=== PATIENT | female | born 1935 | race Caucasian/White ===

== ENCOUNTER 2018-05-07 08:51 | Emergency (ER) | payer OTHER ==
[~2018-05-07] VITALS: Ht 167.6 cm; Wt 73.9 kg
[~2018-05-07 08:51] MED LIST: ALEN10 PO; ALEN70 PO; AMLO5 PO; AMOCLA875 PO; ASPI325 PO; ASPI81CH PO; ASPI81EC PO; ATEN25; ATEN50 PO; Antivert25 MG PO; CALCA500CH PO; CARV25 PO; CEPH500 PO; CHOL10002 PO; CLON.5; CLOP75; CLOP75 PO; CRUTCH USE; ERGO400 PO; EXFORGE; EZET10; EZET10 PO; GABA300 PO; HYDACE5 PO; HYDMOR2 PO; ISOMON60ER; ISOMON60ER PO; Isosorbide Mono30 MG; LOSARTAN POTAS100 MG PO; MEGA RED; MEGARED OMEGA-1 EAC1 PO; MULVITA; NIAC500ER; NIAC500ER PO; NITR.4SL; Norco 5-325 Ta1 EACH PO; OMEP20ER; OMEP20ER PO; OXYACE5T PO; Pantoprazole So40 MG PO; Percocet 5-3251 EACH PO; SERT50 PO; VALS80 PO; VENL150ER PO; VENL37.5; VENL37.5 PO; VENL75 PO; VENL75ER PO; [UNRECOGNIZED DRUG - OTHER]
[2018-05-07 09:41] LABS: BASOPHILS ABSOLUTE AUTO 0.03 K/mm3 (0.00-0.23); BASOPHILS PERCENT AUTO 0 % (0-2); EOSINOPHILS ABSOLUTE AUTO 0.23 K/mm3 (0.00-0.68); EOSINOPHILS PERCENT AUTO 3 % (0-6); Hematocrit 32.6 % (33.0-51.0); Hemoglobin 10.6 g/dL (11.5-16.0); IMMATURE GRAN ABSOLUTE AUTO 0.03 K/mm3 (0.00-0.10); IMMATURE GRAN PERCENT AUTO 0 % (0-1); LYMPHOCYTES ABSOLUTE AUTO 2.73 K/mm3 (0.84-5.20); LYMPHOCYTES PERCENT AUTO 32 % (21-46); MONOCYTES ABSOLUTE AUTO 0.71 K/mm3 (0.16-1.47); MONOCYTES PERCENT AUTO 8 % (4-13); Mean Corpuscular HGB 31.6 pg (26.0-34.0); Mean Corpuscular HGB Conc 32.5 g/dL (31.5-36.5); Mean Corpuscular Volume 97 fL (80-100); Mean Platelet Volume 9.5 fL (9.1-12.4); NEUTROPHILS ABSOLUTE AUTO 4.95 K/mm3 (1.96-9.15); NEUTROPHILS PERCENT AUTO 57 % (41-73); Platelet Count 314 K/mm3 (150-400); RDW Coefficient Variation 12.7 % (11.7-14.2); RDW Standard Deviation 45.1 fL (35.1-46.3); Red Blood Cell Count 3.35 M/mm3 (3.80-5.20); White Blood Cell Count 8.68 K/mm3 (4.00-11.30)
[2018-05-07] MEDS ORDERED: GABA300 PO (10:06)
[2018-05-07] MEDS ORDERED: PANT40 PO (10:06)
[2018-05-07 10:08] LABS: Alanine Aminotransfer (ALT/SGP 19 U/L (12-78); Albumin, Blood 3.4 g/dL (3.4-5.0); Albumin/Globulin Ratio 0.7 (0.8-1.8); Alk Phos 79 U/L (50-136); Anion Gap 8 mmol/L (6-16); Aspartate Aminotrans (AST/SGOT 17 U/L (12-37); Bilirubin, Total 0.5 mg/dL (0.1-1.0); Blood Urea Nitrogen 16 mg/dL (8-24); Bun/Creatinine Ratio 16.1 (12.0-20.0); CO2, Blood 26 mmol/L (21-32); Calcium, Blood 10.1 mg/dL (8.5-10.1); Chloride, Blood 106 mmol/L (98-108); Globulin, Blood 4.7 g/dL (2.2-4.0); Glomerular Filtration Rate 57 (60-); Glucose, Blood 97 mg/dL (70-99); Potassium, Blood 4.1 mmol/L (3.5-5.5); Sodium, Blood 140 mmol/L (136-145); Total Protein, Blood 8.1 g/dL (6.4-8.2)
[2018-05-07 10:09] LABS: Troponin I <0.015 ng/mL (0.000-0.040)
== END 2018-05-07 11:30 | disposition home or self-care (01) ==
LOC: ER 08:51
PROVIDERS: Internal Medicine
DX: R68.84 Jaw pain (principal); I10 Essential (primary) hypertension; E78.5 Hyperlipidemia, unspecified; Z88.1 Allergy status to other antibiotic agents; Z88.8 Allergy status to other drugs, medicaments and biological substances; Z79.82 Long term (current) use of aspirin; Z79.01 Long term (current) use of anticoagulants; Z87.891 Personal history of nicotine dependence
CPT/HCPCS: 36415; 80053; 84484; 85025; 93005; 93010; 99283-25

== ENCOUNTER 2018-10-13 23:35 | Emergency (ER) | payer MEDICARE, OTHER ==
[~2018-10-13] VITALS: Ht 170.2 cm; Wt 73.9 kg
[~2018-10-13 23:35] MED LIST changes: +FOLGARD TABLET1 EACH PO; -Isosorbide Mono30 MG; +Isosorbide Mono30 MG PO; +PANT40 PO; +VENL150ER
[2018-10-14] MEDS ORDERED: METO25ER PO (00:52)
[2018-10-14] MEDS ORDERED: ALPR.25 (00:54)
[2018-10-14] MEDS ORDERED: NITR.4SL SL (00:58)
[2018-10-14] MEDS ORDERED: Stool Softener100 MG PO (00:59)
[2018-10-14] MEDS ORDERED: PRIM50 PO (01:00)
[2018-10-14] MEDS ORDERED: MIRALAX17 GM PO (01:00)
== END 2018-10-14 02:00 | disposition home or self-care (01) ==
LOC: ER 23:35
DX: S00.03XA Contusion of scalp, initial encounter (principal); I10 Essential (primary) hypertension; M81.0 Age-related osteoporosis without current pathological fracture; E78.5 Hyperlipidemia, unspecified; Z95.1 Presence of aortocoronary bypass graft; Z88.1 Allergy status to other antibiotic agents; Z88.8 Allergy status to other drugs, medicaments and biological substances; Z79.82 Long term (current) use of aspirin; Z79.899 Other long term (current) drug therapy; Z87.891 Personal history of nicotine dependence; W19.XXXA Unspecified fall, initial encounter
CPT/HCPCS: 70450; 72125; 72128; 99283-25

== ENCOUNTER 2019-01-09 15:38 | Inpatient (IN) | payer MEDICARE, SELFPAY ==
[~2019-01-09] VITALS: Ht 165.1 cm; Wt 72.6 kg
[~2019-01-09 15:38] MED LIST changes: +ALPR.25 PO; +METO25ER PO; +MIRALAX17 GM PO; +NITR.4SL SL; +Primidone50 MG PO; +Stool Softener100 MG PO
[2019-01-09 16:22] LABS: BASOPHILS ABSOLUTE AUTO 0.01 K/mm3 (0.00-0.23); BASOPHILS PERCENT AUTO 0 % (0-2); EOSINOPHILS ABSOLUTE AUTO 0.18 K/mm3 (0.00-0.68); EOSINOPHILS PERCENT AUTO 2 % (0-6); Hematocrit 33.5 % (33.0-51.0); Hemoglobin 10.6 g/dL (11.5-16.0); IMMATURE GRAN ABSOLUTE AUTO 0.05 K/mm3 (0.00-0.10); IMMATURE GRAN PERCENT AUTO 1 % (0-1); LYMPHOCYTES ABSOLUTE AUTO 2.17 K/mm3 (0.84-5.20); LYMPHOCYTES PERCENT AUTO 23 % (21-46); MONOCYTES ABSOLUTE AUTO 0.74 K/mm3 (0.16-1.47); MONOCYTES PERCENT AUTO 8 % (4-13); Mean Corpuscular HGB 30.8 pg (26.0-34.0); Mean Corpuscular HGB Conc 31.6 g/dL (31.5-36.5); Mean Corpuscular Volume 97 fL (80-100); Mean Platelet Volume 9.6 fL (9.1-12.4); NEUTROPHILS ABSOLUTE AUTO 6.48 K/mm3 (1.96-9.15); NEUTROPHILS PERCENT AUTO 67 % (41-73); Platelet Count 279 K/mm3 (150-400); RDW Coefficient Variation 13.9 % (11.7-14.2); RDW Standard Deviation 49.7 fL (35.1-46.3); Red Blood Cell Count 3.44 M/mm3 (3.80-5.20); White Blood Cell Count 9.63 K/mm3 (4.00-11.30)
[2019-01-09] MEDS ORDERED: VENL150ER PO (16:27)
[2019-01-09 16:33] LABS: Albumin, Blood 3.1 g/dL (3.4-5.0); Albumin/Globulin Ratio 0.7 (0.8-1.8); Bilirubin, Total 0.2 mg/dL (0.1-1.0); Bun/Creatinine Ratio 13.7 (12.0-20.0); Calcium, Blood 10.6 mg/dL (8.5-10.1); Creatinine, Blood 1.02 mg/dL (0.40-1.00); Globulin, Blood 4.3 g/dL (2.2-4.0); Potassium, Blood 3.7 mmol/L (3.5-5.5); Total Protein, Blood 7.4 g/dL (6.4-8.2)
--- NOTE | 2019-01-09 19:41 | NUR ---
REPORT FROM [facility] IN ED
[2019-01-10 04:16] LABS: BASOPHILS ABSOLUTE AUTO 0.01 K/mm3 (0.00-0.23); BASOPHILS PERCENT AUTO 0 % (0-2); EOSINOPHILS ABSOLUTE AUTO 0.21 K/mm3 (0.00-0.68); EOSINOPHILS PERCENT AUTO 2 % (0-6); Hematocrit 33.2 % (33.0-51.0); Hemoglobin 10.6 g/dL (11.5-16.0); IMMATURE GRAN ABSOLUTE AUTO 0.05 K/mm3 (0.00-0.10); IMMATURE GRAN PERCENT AUTO 0 % (0-1); LYMPHOCYTES ABSOLUTE AUTO 1.96 K/mm3 (0.84-5.20); LYMPHOCYTES PERCENT AUTO 17 % (21-46); MONOCYTES ABSOLUTE AUTO 0.65 K/mm3 (0.16-1.47); MONOCYTES PERCENT AUTO 6 % (4-13); Mean Corpuscular HGB 30.3 pg (26.0-34.0); Mean Corpuscular HGB Conc 31.9 g/dL (31.5-36.5); Mean Corpuscular Volume 95 fL (80-100); Mean Platelet Volume 9.7 fL (9.1-12.4); NEUTROPHILS ABSOLUTE AUTO 8.92 K/mm3 (1.96-9.15); NEUTROPHILS PERCENT AUTO 76 % (41-73); Platelet Count 247 K/mm3 (150-400); RDW Coefficient Variation 14.1 % (11.7-14.2); RDW Standard Deviation 49.3 fL (35.1-46.3)
[2019-01-10 04:45] LABS: Anion Gap 8 mmol/L (6-16); Blood Urea Nitrogen 14 mg/dL (8-24); Bun/Creatinine Ratio 17.3 (12.0-20.0); CO2, Blood 23 mmol/L (21-32); Calcium, Blood 9.6 mg/dL (8.5-10.1); Chloride, Blood 104 mmol/L (98-108); Creatinine, Blood 0.81 mg/dL (0.40-1.00); Glomerular Filtration Rate >60 (60-); Glucose, Blood 111 mg/dL (70-99); Potassium, Blood 3.8 mmol/L (3.5-5.5); Sodium, Blood 135 mmol/L (136-145)
--- NOTE | 2019-01-10 07:14 | NUR ---
SHIFT SUMMARY PT ADMITTED W/ LEFT HIP FX AFTER GLF. BLOOD CONSENT SIGNED, 18G PLACED, SURGICAL PACKET STARTED. PT HAS BEEN NPO SINCE MIDNIGHT BUT SHE MAY REQUIRE A DELAY IN SURGERY D/T TAKING PLAVIX AT HOME. PT REMAINED ON OXIMIZER AT 5L OVERNIGHT FOR NARCOTIC PAIN MEDS. TELE WAS NSR AT 84 AT TIME OF ASSESSMENT. LANDRY PATENT AND DRAINING. WILL CTM UNTIL PASS TO NEXT SHIFT.
--- NOTE | 2019-01-10 08:20 | NUR ---
SURGICAL CLEARANCE SPOKE WITH DR. DUTTON REGARDING PT HAVING SURGERY TODAY. SHE WAS NOTIFIED THAT PT IS ON 5-6L OXIMIZER AT THIS TIME. SHE REPORTED SHE WOULD SEE PT PRIOR TO GIVING MEDICAL CLEARANCE FOR SURGERY. DR. LUNA NOTIFIED AND GIVEN DR. DUTTON'S CONTACT NUMBER. WILL CONTIUE TO MONITOR PT. CHANGE IN IV PAIN MEDICATION REQUESTED. CONTINUOUS PULSE OXIMETER IN PLACE.
--- NOTE | 2019-01-10 10:33 | NUR ---
SHIFT ASSESSMENT SHIFT ASSESSMENT DOCUMENTATION BY MARY STUDENT NURSE WAS REVIEWED, THIS RN AGREES WITH DOCUMENTATION. PT IS ORIENTED BUT DROWSY. LLE IS SHORTENED AND EXTERNALLY ROTATED, PULSES ARE EQUAL BILATERALLY. UNABLE TO ASSESS PT'S POSTERIOR R/T PAIN. PT WAS PREVIOUSLY GIVEN DILAUDID AND REMAINS QUITE DROWSY, AT THIS TIME UNABLE TO GIVE ADDIONAL NARCOTIC PAIN MEDICATION R/T DROWSINESS AND CONCERN FOR SAFETY IF MEDICATION WAS GIVEN. TYLENOL GIVEN FOR PAIN. WILL CONTINUE TO MONITOR.
--- NOTE | 2019-01-10 14:31 | NUR ---
MEDICATION LIST PT APPEARS TO BE SOMEWHAT CONFUSED ABOUT THE MEDICATIONS SHE TAKES AT HOME. MEDICATION LIST WAS VERIFIED A SECOND TIME WITH THE PATIENT AND HER SON. APPEARS MEDICATIONS ORDERED ARE CORRECT IN THE EMAR AT THIS TIME.
--- NOTE | 2019-01-10 15:11 | NUR ---
SKIN INTEGRITY/REPOSITIONING PT WAS EDUCATED THAT SHE COULD DEVELOP A PRESSURE INJURY IF SHE DID NOT ALLOW STAFF TO ASSIST WITH REPOSITIONING. PT WAS RESISTANT TO REPOSITIONING BUT ULTIMATELY ALLOWED STAFF TO ASSIST HER SLIGHTLY ONTO HER R SIDE. SACRUM IS REDDENED, SKIN BLANCHES, NO OPEN AREAS OF SKIN.
--- NOTE | 2019-01-10 17:02 | NUR ---
SHIFT SUMMARY PT WAS ADMITTED FOR A L HIP FX FROM [facility], SURGERY HAS BEEN DELAYED UNTIL SHE NEEDS LESS O2, CURRENTLY ON 4.5L VIA NASAL CANNULA, PT STATES SHE DOES NOT REQUIRE O2 AT BASELINE. 18G IV IN R WRIST. MAY REQUIRE SNF OR OTHER ACCOMMODATIONS FOR RECOVERY.
--- NOTE | 2019-01-10 18:43 | NUR ---
SHIFT SUMMARY PAIN HAS BEEN MANAGED WITH TYLENOL THIS SHIFT. PT DENIES PAIN EXCEPT WITH REPOSITIONING. PT IS TOLERATING REPOSITIONG THIS WELL. FAMILY HAS BEEN IN TO VISIT DURING THE DAY. OXYGEN HAS BEEN SLOWLY WEANED PT IS NOW ON 3L O2 VIA NC. VSS. WILL MONITOR UNTIL REPORT TO ONCOMING RN.
--- NOTE | 2019-01-11 06:45 | NUR ---
SHIFT SUMMARY PT IS AN ADD-ON FOR SURGERY TODAY FOR LEFT HIP FX. SHE IS GENERALLY A&O BUT FORGETFUL. STAYED THE NIGHT LAST NIGHT. PT DID NOT REQUIRE PAIN MEDS, SLEPT HARD. SHE HAD TO BE TURNED UP TO 3L VIA NC BECAUSE SHE COULDN'T MAINTAIN 90% ON 2L. PT HAS BEEN NPO SINCE MIDNIGHT, LOVENOX HELD, 18G IN PLACE. LANDRY PATENT AND DRAINING. TELE WAS SINUS WITH [facility] OVERNIGHT. WILL CTM UNTIL PASS TO NEXT SHIFT.
--- NOTE | 2019-01-11 07:32 | NUR ---
DR AMADOR HERE TO SEE PT.
--- NOTE | 2019-01-11 08:26 | NUR ---
DR SETH HERE RECENTLY TO SEE PT. DISCUSSED MEDICATIONS. REPORTS TO HOLD MEDICATIONS AT THIS TIME.
[2019-01-11 08:37] LABS: Source, Urine Catheter
[2019-01-11 08:39] LABS: Bilirubin, Urine Neg (Neg); Blood, Urine 5+ (Neg); Glucose Qualitative, Urine Neg (Neg); Ketones, Urine Neg (Neg); Leukocyte Esterase, Urine 1+ (Neg); Nitrite, Urine Neg (Neg); Protein, Urine 1+ (Neg); Urobilinogen, Urine NORM (Normal)
[2019-01-11 08:52] LABS: BASOPHILS ABSOLUTE AUTO 0.02 K/mm3 (0.00-0.23); BASOPHILS PERCENT AUTO 0 % (0-2); EOSINOPHILS ABSOLUTE AUTO 0.19 K/mm3 (0.00-0.68); EOSINOPHILS PERCENT AUTO 2 % (0-6); Hematocrit 37.6 % (33.0-51.0); Hemoglobin 12.2 g/dL (11.5-16.0); IMMATURE GRAN ABSOLUTE AUTO 0.07 K/mm3 (0.00-0.10); IMMATURE GRAN PERCENT AUTO 1 % (0-1); LYMPHOCYTES ABSOLUTE AUTO 1.65 K/mm3 (0.84-5.20); LYMPHOCYTES PERCENT AUTO 14 % (21-46); MONOCYTES ABSOLUTE AUTO 0.88 K/mm3 (0.16-1.47); MONOCYTES PERCENT AUTO 7 % (4-13); Mean Corpuscular HGB 30.3 pg (26.0-34.0); Mean Corpuscular HGB Conc 32.4 g/dL (31.5-36.5); Mean Corpuscular Volume 94 fL (80-100); Mean Platelet Volume 9.6 fL (9.1-12.4); NEUTROPHILS ABSOLUTE AUTO 9.13 K/mm3 (1.96-9.15); NEUTROPHILS PERCENT AUTO 76 % (41-73); Platelet Count 277 K/mm3 (150-400); RDW Coefficient Variation 14.1 % (11.7-14.2); RDW Standard Deviation 48.4 fL (35.1-46.3); Red Blood Cell Count 4.02 M/mm3 (3.80-5.20); White Blood Cell Count 11.94 K/mm3 (4.00-11.30)
[2019-01-11 09:21] LABS: Alanine Aminotransfer (ALT/SGP 15 U/L (12-78); Albumin, Blood 3.1 g/dL (3.4-5.0); Albumin/Globulin Ratio 0.7 (0.8-1.8); Alk Phos 76 U/L (50-136); Anion Gap 7 mmol/L (6-16); Aspartate Aminotrans (AST/SGOT 16 U/L (12-37); Bilirubin, Total 0.6 mg/dL (0.1-1.0); Blood Urea Nitrogen 11 mg/dL (8-24); Bun/Creatinine Ratio 14.7 (12.0-20.0); CO2, Blood 24 mmol/L (21-32); Calcium, Blood 10.2 mg/dL (8.5-10.1); Chloride, Blood 103 mmol/L (98-108); Creatinine, Blood 0.75 mg/dL (0.40-1.00); Globulin, Blood 4.6 g/dL (2.2-4.0); Glomerular Filtration Rate >60 (60-); Glucose, Blood 106 mg/dL (70-99); Potassium, Blood 3.5 mmol/L (3.5-5.5); Sodium, Blood 134 mmol/L (136-145); Total Protein, Blood 7.7 g/dL (6.4-8.2)
[2019-01-11 09:32] LABS: Appearance, Urine Hazy (Clear); Color, Urine Yellow (P-Yellow)
[2019-01-11 09:33] LABS: Bacteria Few /hpf; Mucus Light ({null, 0-Heavy}); Red Blood Cells, Urine 25-50 /hpf (0-2); Squamous Epithelial Cells Few /hpf (Few)
--- NOTE | 2019-01-11 09:55 | NUR ---
PO MEDS GIVEN WITH SIP OF WATER. FAMILY NOW HERE WITH PT.
--- NOTE | 2019-01-11 10:38 | NUR ---
DR SETH HERE. FAMILY HERE.
--- NOTE | 2019-01-11 14:58 | NUR ---
PT TO IMAGING. PT WAS MULT ASSIST TO TANESHA. PT TOLERATED WELL.
--- NOTE | 2019-01-11 19:26 | NUR ---
SHIFT SUMMARY PT HAS BEEN BEDREST TODAY. REPOSITIONED MULTIPLE TIMES. DR IN TO SEE PT THIS MORNING. DISCUSSED MEDS WITH DR. PT HAS BEEN EATING AND DRINKING TODAY PER ORDERS. PT IS PASSING GAS. FAMILY HAS BEEN IN WITH PATIENT TODAY. LNADRY IN PLACE, SECURED, OFF FLOOR. BED ALARM ON. ORTHO REPORTS PLAN FOR SURGERY ON
--- NOTE | 2019-01-12 07:43 | NUR ---
SHIFT SUMMARY PT A&O X4; PT IN ROOM T/O SHIFT. PAIN IN L HIP/LLE MANAGED PER EMAR. PT REPOSITIONED PT TOLERATED. CONT. OXIMETRY IN PLACE; O2 VIA NC; TELEMETRY IN PLACE, SR WITH OCC PVC'S PER BELT MEASURER. PPPX4; PT DENIES N/T IN EXT, SOB, CP AND NAUSEA. SCD'S TO BLE'S. CALL LIGHT IN REACH; PT DEMONSTRATES USE. SIDE RAILS X3 FOR SAFETY. REPORT GIVEN TO DAY SHIFT RN.
--- NOTE | 2019-01-12 11:50 | NUR ---
DR HERE TO SEE PT RECENTLY. DISCUSSED PT STATUS AND PLANS FOR SURGERY.
--- NOTE | 2019-01-12 12:59 | NUR ---
BEDBATH GIVEN BY FEMALE ZINC SKIMMER AND FEMALE RN. GOWN AND BLANKETS CHANGED AT THIS TIME.
--- NOTE | 2019-01-12 14:40 | NUR ---
Met pt. lying in bed resting , she reports doing much better , encouraged pt. and opffered spirirual support and prayers.
--- NOTE | 2019-01-12 18:21 | NUR ---
SHIFT SUMMARY PT HAS BEEN BEDREST PER ORDERS D/T HIP FX. PT WAS GIVEN BEDBATH TODAY. SEE NOTE. IN TO SEE PT TODAY. DISCUSSED PLANS FOR SURGERY WELL MEDICATION. PT HAS BEEN TOLERATING FOOD AND FLUIDS WELL. LANDRY IN PLACE, SECURED, OFF FLOOR. PT HAS BEEN ON O2 TODAY. FAMILY HAS BEEN IN THE ROOM WITH PT TODAY. PT HAS BEEN REPOSITIONED SEVERAL TIMES.
--- NOTE | 2019-01-13 04:46 | NUR ---
SUMMARY: PT ADMITTED FOR L HIP FX. NO ACUTE CHANGE TONIGHT. VSS, REPOSITIONED FOR COMFORT. PT HAS DENIED PAIN AT HIP THE MAJORITY OF THE NIGHT, MEDICATED X1, OTHERWISE PT HAS SLEPT. TELE GRIS IBARRA PATENT. PT HAS BEEN NPO SINCE 0000. PLAN IS SURGERY TODAY. PT AT BEDSIDE. WILL CONTINUE TO MONITOR AND REPORT TO DAY RN
[2019-01-13 04:53] LABS: BASOPHILS ABSOLUTE AUTO 0.02 K/mm3 (0.00-0.23); BASOPHILS PERCENT AUTO 0 % (0-2); EOSINOPHILS ABSOLUTE AUTO 0.33 K/mm3 (0.00-0.68); EOSINOPHILS PERCENT AUTO 3 % (0-6); Hematocrit 34.1 % (33.0-51.0); Hemoglobin 11.1 g/dL (11.5-16.0); IMMATURE GRAN ABSOLUTE AUTO 0.05 K/mm3 (0.00-0.10); IMMATURE GRAN PERCENT AUTO 0 % (0-1); LYMPHOCYTES ABSOLUTE AUTO 2.39 K/mm3 (0.84-5.20); LYMPHOCYTES PERCENT AUTO 21 % (21-46); MONOCYTES ABSOLUTE AUTO 1.39 K/mm3 (0.16-1.47); MONOCYTES PERCENT AUTO 12 % (4-13); Mean Corpuscular HGB 30.7 pg (26.0-34.0); Mean Corpuscular HGB Conc 32.6 g/dL (31.5-36.5); Mean Corpuscular Volume 95 fL (80-100); Mean Platelet Volume 10.1 fL (9.1-12.4); NEUTROPHILS ABSOLUTE AUTO 7.03 K/mm3 (1.96-9.15); NEUTROPHILS PERCENT AUTO 63 % (41-73); Platelet Count 260 K/mm3 (150-400); RDW Coefficient Variation 13.9 % (11.7-14.2); RDW Standard Deviation 48.1 fL (35.1-46.3); Red Blood Cell Count 3.61 M/mm3 (3.80-5.20); White Blood Cell Count 11.21 K/mm3 (4.00-11.30)
[2019-01-13 05:07] LABS: Albumin, Blood 2.6 g/dL (3.4-5.0); Anion Gap 8 mmol/L (6-16); Blood Urea Nitrogen 23 mg/dL (8-24); Bun/Creatinine Ratio 26.5 (12.0-20.0); CO2, Blood 25 mmol/L (21-32); Calcium, Blood 10.4 mg/dL (8.5-10.1); Chloride, Blood 100 mmol/L (98-108); Creatinine, Blood 0.87 mg/dL (0.40-1.00); Glomerular Filtration Rate >60 (60-); Glucose, Blood 102 mg/dL (70-99); Phosphorus, Blood 3.1 mg/dL (2.5-4.9); Potassium, Blood 3.9 mmol/L (3.5-5.5); Sodium, Blood 133 mmol/L (136-145)
--- NOTE | 2019-01-13 07:44 | NUR ---
pt has her eyes close opens to verbal stimuli pt stated her pain is better plan for or today around 1230 npo spouse at bedside
--- NOTE | 2019-01-13 11:15 | NUR ---
pt visiting with family offered pain meds pt declined
--- NOTE | 2019-01-13 11:42 | NUR ---
pt transported by bed to day surg
--- NOTE | 2019-01-13 11:50 | NUR ---
INTO SDS ADMISSION TO UNIT STARTED. VSS SAT 90-91% ON O2.
--- NOTE | 2019-01-13 13:37 | NUR ---
Pt. is not in the room, she is gone for surgery will try to see her when she is out from surgery.
--- NOTE | 2019-01-13 13:48 | NUR ---
01/13/19 1348 Ezra Chavez RECEIVED TO OR WITH LANDRY IN PLACE
--- NOTE | 2019-01-13 16:05 | NUR ---
pt arrived to room 215 from pacu pt is s/p l hip repair aquacel cdi pt is sleeping does not open her eyes but stirs with physical stimuli and follows simple commands pt has nc in her mouth family at bedside cl on bedside table will offer when pt more alert
--- NOTE | 2019-01-13 18:30 | NUR ---
pt awake sat up in bed no pain placed dentures and gave pt cl jello and water pt wanting to eat dinner saved from earlier
--- NOTE | 2019-01-13 19:15 | NUR ---
pt choking on her dinner has a peice of meat stuck in her throat hepled pt sit 90 degree up suction encouraged pt to deep cough lg amt dk brown thick mucus pt able to talk biox 92-94% also took some swallows of water after getting up the mucus did not see the chunk of meat removed pt tray from table left water
--- NOTE | 2019-01-13 19:30 | NUR ---
NURSING AT BEDSIDE WITH MALCOLM ASSISTING PT WITH ORAL SUCTIONING AND PROVIDING CPT WHILE ENCOURAGING HER TO TAKE DEEP BREATHES AND COUGH. AIRWAY MAINTAINED, PT COUGHED UP SEVERAL LARGE AMOUNTS OF CLEAR THICK MUCUS INTO EMESIS BAG. FINE CRACKLES NOTED IN BASE OF LEFT SIDE. CLEAR THROUGHTOUT OTHERWISE. SAFETY MEASURES IN PLACE. WILL CONTINUE TO MONITOR.
--- NOTE | 2019-01-13 23:30 | NUR ---
PT CALLED OUT STATING THAT SHE NEEDED ASSISTANCE. WHEN NURSING ARRIVED AT BEDSIDE, PT ASKED, "ARE YOU JUST GOING TO LET ME ?" NURSING ASKED WHY SHE WOULD ASK SUCH A QUESTION, PT STATED THAT SHE COULDN'T BREATH. AFTER LISTENING TO BBS, NURSING NOTED AN INCREASE IN THE CRACKLES. IVF TURNED OFF AT THIS TIME. NURSING ALSO ENCOURAGED PT TO COUGH AND DEEP BREATH. RT CONTACTED AND PRN BREATHING TREATMENT REQUESTED. RT ASSESSED PT AND OFFERED A FLUTTER VALVE TO ASSIST WITH DEEP BREATHING. PT DEMONSTRATED PROPER TECHNIQUE. VERBALIZES THAT SHE FEELS BETTER AND IS PLANNING ON SLEEPING NOW. DENIES FURTHER NEEDS AT THIS TIME. SAFETY MEAURES IN PLACE. WILL CONTINUE TO MONITOR.
[2019-01-14 04:33] LABS: BASOPHILS ABSOLUTE AUTO 0.03 K/mm3 (0.00-0.23); BASOPHILS PERCENT AUTO 0 % (0-2); EOSINOPHILS PERCENT AUTO 0 % (0-6); Hematocrit 31.9 % (33.0-51.0); Hemoglobin 10.3 g/dL (11.5-16.0); IMMATURE GRAN ABSOLUTE AUTO 0.06 K/mm3 (0.00-0.10); IMMATURE GRAN PERCENT AUTO 0 % (0-1); LYMPHOCYTES PERCENT AUTO 11 % (21-46); MONOCYTES PERCENT AUTO 7 % (4-13); Mean Corpuscular HGB 30.3 pg (26.0-34.0); Mean Corpuscular HGB Conc 32.3 g/dL (31.5-36.5); Mean Corpuscular Volume 94 fL (80-100); NEUTROPHILS ABSOLUTE AUTO 13.11 K/mm3 (1.96-9.15); NEUTROPHILS PERCENT AUTO 81 % (41-73); Platelet Count 294 K/mm3 (150-400); RDW Coefficient Variation 13.7 % (11.7-14.2); RDW Standard Deviation 47.2 fL (35.1-46.3)
--- NOTE | 2019-01-14 06:22 | NUR ---
SHIFT SUMMARY LYING IN SEMI FOWLERS WITH EYES CLOSED. DENIES PAIN, DISCOMFORT, OR FURTHER NEEDS AT THIS TIME. NO FURTHER CHANGES SINCE ADMISSION. SAFETY MEASURES IN PLACE. WILL GIVE HAND OFF TO ONCOMING SHIFT USING SBAR.
--- NOTE | 2019-01-14 17:34 | NUR ---
SHIFT SUMMARY PATIENT STATES PAIN CONTROLLED WITH PO PAIN MED. TOLERATING PO. FC DRAINING CLEAR YELLOW URINE-TO D/C AM POD 2. L HIP DRESSING D&I. CIRC CHECKS WNL. FAMILY IN TO SEE THIS SHIFT. UP TO DANGLE SIDE OF BED WITH PT THIS AFTERNOON. CONT TO MONITOR.
--- NOTE | 2019-01-14 23:10 | NUR ---
RHYTHMN CHANGE FROM SR WITH PVC'S TO AFIB 60'S-120'S. PT IS ASYMPTOMATIC WITH STABLE VITAL SIGNS. DR. CHRISTIANSEN CONTACTED AND INFORMED OF CHANGES, NO NEW ORDERS NOTED. WILL CONTINUE TO MONITOR.
--- NOTE | 2019-01-15 07:29 | NUR ---
SALINE LOCK PRESENT TO LEFT WRIST, DC'S INTACT
--- NOTE | 2019-01-15 07:42 | NUR ---
LYING IN SEMI FOWLERS WITH EYES CLOSED. DENIES PAIN, DISCOMFORT, OR FURTHER NEEDS AT THIS TIME. NO FURTHER CHANGES SINCE START OF SHIFT. SAFETY MEASURES IN PLACE. WILL GIVE HAND OFF TO ONCOMING SHIFT USING SBAR.
--- NOTE | 2019-01-15 14:39 | NUR ---
REPORT PHONED TO LINDA MELENDEZ [facility]
--- NOTE | 2019-01-15 14:53 | NUR ---
1445 DISCHARGED WITH TRANSPORT TO [facility]. PATIENTS AT BEDSIDE
== END 2019-01-15 14:51 | DRG 470 ==
LOC: ER 15:38 → SURS 18:22
PROVIDERS: Emergency Medicine; Orthopaedic Surgery; ADMIT Internal Medicine
PROC: 0SRS0JZ Replacement of Left Hip Joint, Femoral Surface with Synthetic Substitute, Open Approach (ICD-10-PCS; principal; 2019-01-13 12:30)
DX: S72.012A Unspecified intracapsular fracture of left femur, initial encounter for closed fracture (principal); N30.00 Acute cystitis without hematuria; R09.02 Hypoxemia; I10 Essential (primary) hypertension; I25.10 Atherosclerotic heart disease of native coronary artery without angina pectoris; R06.03 Acute respiratory distress; W01.0XXA Fall on same level from slipping, tripping and stumbling without subsequent striking against object, initial encounter; Z87.891 Personal history of nicotine dependence; I48.91 Unspecified atrial fibrillation; E03.9 Hypothyroidism, unspecified; E78.5 Hyperlipidemia, unspecified; M81.0 Age-related osteoporosis without current pathological fracture; Z95.1 Presence of aortocoronary bypass graft; Z95.5 Presence of coronary angioplasty implant and graft; Z66 Do not resuscitate; R25.1 Tremor, unspecified; T40.2X5A Adverse effect of other opioids, initial encounter; E83.52 Hypercalcemia; B95.4 Other streptococcus as the cause of diseases classified elsewhere
CPT/HCPCS: 36415; 51702; 71045; 72170; 73502; 73552; 80048; 80053; 80069; 81001; 82330; 83880; 84443; 85025; 85027; 87086; 93005; 93010; 94667; 94762; 96361-59; 96374-59; 96376-59; 97110; 97162; 97166; 97530; 97535; 99285-25; A9270-GY; C1713; C1776; J0360; J0690; J0696; J1100; J1170; J1650; J1885; J2370; J2405; J2704; J3010; J7030; J7050; J7120

== ENCOUNTER 2019-01-17 20:10 | Observation (INO) | payer MEDICARE, SELFPAY ==
[~2019-01-17] VITALS: Ht 165.1 cm; Wt 69.4 kg
[2019-01-17 20:59] LABS: BASOPHILS ABSOLUTE AUTO 0.03 K/mm3 (0.00-0.23); BASOPHILS PERCENT AUTO 0 % (0-2); EOSINOPHILS ABSOLUTE AUTO 0.07 K/mm3 (0.00-0.68); EOSINOPHILS PERCENT AUTO 1 % (0-6); Hematocrit 31.4 % (33.0-51.0); IMMATURE GRAN ABSOLUTE AUTO 0.14 K/mm3 (0.00-0.10); IMMATURE GRAN PERCENT AUTO 1 % (0-1); LYMPHOCYTES ABSOLUTE AUTO 2.08 K/mm3 (0.84-5.20); LYMPHOCYTES PERCENT AUTO 16 % (21-46); MONOCYTES PERCENT AUTO 6 % (4-13); Mean Corpuscular HGB 30.8 pg (26.0-34.0); Mean Corpuscular HGB Conc 31.8 g/dL (31.5-36.5); Mean Platelet Volume 9.6 fL (9.1-12.4); NEUTROPHILS ABSOLUTE AUTO 10.07 K/mm3 (1.96-9.15); NEUTROPHILS PERCENT AUTO 76 % (41-73); Platelet Count 426 K/mm3 (150-400); RDW Coefficient Variation 13.4 % (11.7-14.2); RDW Standard Deviation 48.2 fL (35.1-46.3); Red Blood Cell Count 3.25 M/mm3 (3.80-5.20); White Blood Cell Count 13.19 K/mm3 (4.00-11.30)
[2019-01-17 21:01] LABS: Mean Corpuscular Volume 97 fL (80-100)
[2019-01-17 21:24] LABS: Albumin, Blood 2.5 g/dL (3.4-5.0); Albumin/Globulin Ratio 0.5 (0.8-1.8); Bilirubin, Total 0.5 mg/dL (0.1-1.0); Bun/Creatinine Ratio 26.6 (12.0-20.0); Calcium, Blood 10.7 mg/dL (8.5-10.1); Creatinine, Blood 0.98 mg/dL (0.40-1.00); Potassium, Blood 4.2 mmol/L (3.5-5.5); Total Protein, Blood 7.5 g/dL (6.4-8.2)
[2019-01-17 21:26] LABS: Source, Urine Catheter
[2019-01-17 21:29] LABS: Blood, Urine 1+ (Neg); Glucose Qualitative, Urine Neg (Neg); Ketones, Urine 1+ (Neg); Leukocyte Esterase, Urine 2+ (Neg); Nitrite, Urine Neg (Neg); Protein, Urine 2+ (Neg); Urobilinogen, Urine 2+ (Normal)
[2019-01-17] MEDS ORDERED: CLOP75 PO (21:34)
[2019-01-17] MEDS ORDERED: LO-DOSE ASPIRIN81 MG PO (21:34)
[2019-01-17] MEDS ORDERED: CYAFAPYR PO (21:34)
[2019-01-17] MEDS ORDERED: Isosorbide Mono30 MG PO (21:35)
[2019-01-17] MEDS ORDERED: MIRALAX17 GM PO (21:35)
[2019-01-17 21:36] LABS: Troponin I 0.529 ng/mL (0.000-0.040)
[2019-01-17] MEDS ORDERED: ENOX40I SC (21:36)
[2019-01-17] MEDS ORDERED: PANT40 PO (21:36)
[2019-01-17 21:37] LABS: Appearance, Urine Hazy (Clear); Bilirubin, Urine 1+ (Neg); Color, Urine Yellow (P-Yellow)
[2019-01-17] MEDS ORDERED: Augmentin 875-1 EACH PO (21:37)
[2019-01-17] MEDS ORDERED: DOCU100 PO (21:37)
[2019-01-17] MEDS ORDERED: VENL150ER PO (21:37)
[2019-01-17] MEDS ORDERED: GABA300 PO (21:37)
[2019-01-17 21:38] LABS: Amorphous Light (0-Heavy); Bacteria Mod /hpf; Mucus Light (0-Heavy); Red Blood Cells, Urine 0-2 /hpf (0-2); Squamous Epithelial Cells Rare /hpf (Few); White Blood Cells, Urine 25-50 /hpf (0-5)
[2019-01-17] MEDS ORDERED: METO25ER PO (21:38)
[2019-01-17] MEDS ORDERED: Primidone50 MG PO (21:38)
[2019-01-17] MEDS ORDERED: LOSA50 PO (21:38)
[2019-01-17] MEDS ORDERED: ACET325 PO (21:39)
[2019-01-17] MEDS ORDERED: BISA10S PR ×2 (21:39→21:40)
[2019-01-17] MEDS ORDERED: Norco 5-325 Ta1 EACH PO (21:40)
[2019-01-17] MEDS ORDERED: CVS DISPOSABLE399 ML PR (21:40)
[2019-01-17] MEDS ORDERED: Milk Of Ma400 MG/5 M PO (21:41)
[2019-01-17] MEDS ORDERED: COMBIVENT RESPIM4 GM INH (21:41)
[2019-01-17] MEDS ORDERED: NITR.4SL SL (21:41)
[2019-01-17] MEDS ORDERED: ALPR.25 PO (21:42)
[2019-01-17] MEDS ORDERED: TRAM50 PO (21:42)
[2019-01-18] MEDS ORDERED: ALBU3IS INH (01:19)
[2019-01-18 04:01] LABS: Adenovirus Not Detected (NOT DETECT); Bordetella pertussis Not Detected (NOT DETECT); Chlamydophila pneumoniae Not Detected (NOT DETECT); Coronavirus 229E Not Detected (NOT DETECT); Coronavirus HKU1 Not Detected (NOT DETECT); Coronavirus NL63 Not Detected (NOT DETECT); Coronavirus OC43 Not Detected (NOT DETECT); Human Metapneumovirus Not Detected (NOT DETECT); Human Rhinovirus/Enterovirus Not Detected (NOT DETECT); Influenza A Not Detected (NOT DETECT); Influenza A/2009-H1 Not Detected (NOT DETECT); Influenza A/H1 Not Detected (NOT DETECT); Influenza A/H3 Not Detected (NOT DETECT); Influenza B Not Detected (NOT DETECT); Mycoplasma pneumoniae Not Detected (NOT DETECT); Parainfluenza Virus 1 Not Detected (NOT DETECT); Parainfluenza Virus 2 Not Detected (NOT DETECT); Parainfluenza Virus 3 Not Detected (NOT DETECT); Parainfluenza Virus 4 Not Detected (NOT DETECT); Respiratory Syncytial Virus Not Detected (NOT DETECT)
[2019-01-18 05:47] LABS: Hematocrit 25.6 % (33.0-51.0); Hemoglobin 8.1 g/dL (11.5-16.0); Mean Corpuscular HGB 29.9 pg (26.0-34.0); Mean Corpuscular HGB Conc 31.6 g/dL (31.5-36.5); Mean Corpuscular Volume 95 fL (80-100); Mean Platelet Volume 9.6 fL (9.1-12.4); Platelet Count 381 K/mm3 (150-400); RDW Coefficient Variation 13.4 % (11.7-14.2); Red Blood Cell Count 2.71 M/mm3 (3.80-5.20); White Blood Cell Count 9.61 K/mm3 (4.00-11.30)
--- NOTE | 2019-01-18 05:47 | NUR ---
SHIFT SUMMARY PT IS NEW ADMIT TO FLOOR LAST NIGHT AROUND 0015. SHE WAS VERY LETHARGIC/DROWSY DURING ASSESSMENT. WOULD WAKE/ANSWER QUESTIONS W/O OPENING EYES & THAN FALL BACK ASLEEP, VERY SLOW @RESPONDING. AOX3, UNAWARE WHY SHE IS IN HOSPITAL, HOWEVER CAN STATE WHERE SHE IS & THE MONTH/YEAR. CONFUSED @TIMES W/QUESTIONS. VSS. DENIES PAIN, NAUSEA, SOB, PALPATIONS OR CHEST PAIN. ON 2L O2 NC (BASELINE), LUNGS SOUND DIM T/O, SPO2 >90%. INCONTINENT, ATTENDS IN PLACE. LARGE BRUISE ON INNER L. GROIN & L. HIP HAS SURGICAL BANDAGE WHICH PT CAME TO FLOOR WITH. PT HAS BEEN NPO PER ORDERS. NS RUNNING @75ML/HR. CALL LIGHT IN REACH & BED ALARM ON.
[2019-01-18 06:09] LABS: Alanine Aminotransfer (ALT/SGP 30 U/L (12-78); Albumin, Blood 2.1 g/dL (3.4-5.0); Albumin/Globulin Ratio 0.5 (0.8-1.8); Alk Phos 82 U/L (50-136); Anion Gap 5 mmol/L (6-16); Aspartate Aminotrans (AST/SGOT 28 U/L (12-37); Bilirubin, Total 0.5 mg/dL (0.1-1.0); Blood Urea Nitrogen 25 mg/dL (8-24); CO2, Blood 27 mmol/L (21-32); Chloride, Blood 103 mmol/L (98-108); Creatinine, Blood 0.86 mg/dL (0.40-1.00); Glomerular Filtration Rate >60 (60-); Glucose, Blood 94 mg/dL (70-99); Potassium, Blood 3.8 mmol/L (3.5-5.5); Sodium, Blood 135 mmol/L (136-145); Total Protein, Blood 6.1 g/dL (6.4-8.2)
--- NOTE | 2019-01-18 11:57 | NUR ---
Echocardiogram completed.
[2019-01-18 13:48] LABS: Troponin I 0.325 ng/mL (0.000-0.040)
[2019-01-18 21:30] LABS: Troponin I 0.398 ng/mL (0.000-0.040)
[2019-01-19 04:26] LABS: BASOPHILS ABSOLUTE AUTO 0.02 K/mm3 (0.00-0.23); BASOPHILS PERCENT AUTO 0 % (0-2); EOSINOPHILS ABSOLUTE AUTO 0.27 K/mm3 (0.00-0.68); EOSINOPHILS PERCENT AUTO 3 % (0-6); Hematocrit 26.4 % (33.0-51.0); Hemoglobin 8.5 g/dL (11.5-16.0); IMMATURE GRAN ABSOLUTE AUTO 0.09 K/mm3 (0.00-0.10); IMMATURE GRAN PERCENT AUTO 1 % (0-1); LYMPHOCYTES ABSOLUTE AUTO 2.72 K/mm3 (0.84-5.20); LYMPHOCYTES PERCENT AUTO 25 % (21-46); MONOCYTES ABSOLUTE AUTO 0.86 K/mm3 (0.16-1.47); MONOCYTES PERCENT AUTO 8 % (4-13); Mean Corpuscular HGB 30.1 pg (26.0-34.0); Mean Corpuscular HGB Conc 32.2 g/dL (31.5-36.5); Mean Corpuscular Volume 94 fL (80-100); Mean Platelet Volume 9.5 fL (9.1-12.4); NEUTROPHILS ABSOLUTE AUTO 6.73 K/mm3 (1.96-9.15); NEUTROPHILS PERCENT AUTO 63 % (41-73); Platelet Count 420 K/mm3 (150-400); RDW Coefficient Variation 13.4 % (11.7-14.2); RDW Standard Deviation 46.5 fL (35.1-46.3); Red Blood Cell Count 2.82 M/mm3 (3.80-5.20); White Blood Cell Count 10.69 K/mm3 (4.00-11.30)
[2019-01-19 04:41] LABS: Anion Gap 7 mmol/L (6-16); Blood Urea Nitrogen 19 mg/dL (8-24); Bun/Creatinine Ratio 23.3 (12.0-20.0); CO2, Blood 26 mmol/L (21-32); Calcium, Blood 9.9 mg/dL (8.5-10.1); Chloride, Blood 103 mmol/L (98-108); Creatinine, Blood 0.82 mg/dL (0.40-1.00); Glomerular Filtration Rate >60 (60-); Glucose, Blood 88 mg/dL (70-99); Potassium, Blood 3.7 mmol/L (3.5-5.5); Sodium, Blood 136 mmol/L (136-145)
--- NOTE | 2019-01-19 07:19 | NUR ---
SHIFT SUMMARY PT FLAT SLOW TO RESPOND.INCONT LIQ STOOL X2. 1L O2 NC. SHE WAS ABLE TO SLEEP THROUGH NIGHT. SO AT BEDSIDE T/O NIGHT. CALL LIGHT IN REACH.
--- NOTE | 2019-01-19 19:04 | NUR ---
SHIFT SUMMARY. PT DENIES SOB, N/V, AND PAIN. PER CASE MANAGEMENT, PT PRIOR AUTHORIZATION TO RETURN TO [facility] SHOULD BE COMPLETED TOMORROW. IN ROOM MOST OF THE SHIFT. NO NEW CHANGES OR CONCERNS.
--- NOTE | 2019-01-20 03:58 | NUR ---
83 year old female status post lt hip fx pinning on 01/13/19 was sent to snf for rehab and readmitted with hypotension and lethargy. vss, denies pain. appetite poor, milkshake prepared and set up . took 100%. continues incontinent of bowel and bladder. urine culture final shows no growth. Flat affect, irritable at times. on tele NSR.
--- NOTE | 2019-01-20 06:20 | NUR ---
pt has been incontinent of bowel and bladder. probiotics started and no stool this AM. Assist to take oral supplement this am for poor intake. took 50% supplement with assist. Spouse Don at bedside and supportive. Pt continues on 2 l nc to keep sats greater than 90%. Nonprod occ cough no sputum for sample.
[2019-01-20] MEDS ORDERED: GABA100 PO (10:15)
[2019-01-20] MEDS ORDERED: Norco 5-325 Ta1 EACH PO (10:19)
[2019-01-20] MEDS ORDERED: Isosorbide Mono30 MG PO (10:21)
[2019-01-20] MEDS ORDERED: Amoxicillin500 MG PO (10:42)
[2019-01-20] MEDS ORDERED: VISBIOME 112.51 EACH PO (10:51)
--- NOTE | 2019-01-20 13:44 | NUR ---
met pt, lying in bed resting amd the spouse in the room,pt. is doing much better encouraged pt. and prayed for her.
--- NOTE | 2019-01-20 14:46 | NUR ---
DISCHARGE NOTE: PT HAS BEEN ALERT AND ORIENTED THROUGHOUT THIS SHIFT. PT DISCHARGED VIA TRANSPORTATION TO [facility]. REPORT CALLED TO [facility]. PT 2 PERSON ASSIST TO WHEELCHAIR FOR TRANSPORTATION. PT ORIENTED AND COOPERATIVE DURING TRANSFER. PT LEFT THE FLOOR WITH THE REAL ESTATE APPRAISER.
== END 2019-01-20 14:46 ==
LOC: ER 20:10 → MEDS 20:11 → ER 22:45 → MEDS 22:45 → ER 01-18 12:00 → MEDS 01-18 12:00 → ENPENDDIS 01-20 09:29 → MEDS 01-20 14:46
PROVIDERS: Emergency Medicine; Internal Medicine; ADMIT Internal Medicine
DX: G92 Toxic encephalopathy (principal); I95.9 Hypotension, unspecified; N39.0 Urinary tract infection, site not specified; G31.84 Mild cognitive impairment of uncertain or unknown etiology; S72.002A Fracture of unspecified part of neck of left femur, initial encounter for closed fracture; R09.02 Hypoxemia; R77.8 Other specified abnormalities of plasma proteins; Z66 Do not resuscitate; I10 Essential (primary) hypertension; I25.10 Atherosclerotic heart disease of native coronary artery without angina pectoris; I48.91 Unspecified atrial fibrillation; E03.9 Hypothyroidism, unspecified; E78.5 Hyperlipidemia, unspecified; Z79.899 Other long term (current) drug therapy; Z79.82 Long term (current) use of aspirin; Z88.1 Allergy status to other antibiotic agents; Z88.8 Allergy status to other drugs, medicaments and biological substances; Z91.048 Other nonmedicinal substance allergy status; Z74.09 Other reduced mobility
CPT/HCPCS: 36415; 71045; 80048; 80053; 81001; 82550; 83605; 83880; 84145; 84484; 85025; 85027; 87086; 87486; 87581; 87633; 87798; 93005; 93010; 93306; 94760; 96365; 96367; 97110; 97162; 97530; 99285-25; J0696; J1650; J2543; J7030; J7120; P9612

== ENCOUNTER 2019-01-28 11:00 | Emergency (ER) | payer MEDICARE, SELFPAY ==
[~2019-01-28] VITALS: Ht 167.6 cm; Wt 86.2 kg
[~2019-01-28 11:00] MED LIST changes: +ACET325 PO; +ALBU3IS INH; +Amoxicillin500 MG PO; +Augmentin 875-1 EACH PO; +BISA10S PR; +COMBIVENT RESPIM4 GM INH; +CVS DISPOSABLE399 ML PR; +CYAFAPYR PO; +DOCU100 PO; +ENOX40I SC; +GABA100 PO; +LO-DOSE ASPIRIN81 MG PO; +LOSA50 PO; +Milk Of Ma400 MG/5 M PO; +TRAM50 PO; +VISBIOME 112.51 EACH PO
== END 2019-01-28 11:20 | disposition home or self-care (01) ==
LOC: ER 11:00
DX: I95.9 Hypotension, unspecified (principal); Z91.048 Other nonmedicinal substance allergy status; Z88.8 Allergy status to other drugs, medicaments and biological substances; Z88.1 Allergy status to other antibiotic agents; Z79.899 Other long term (current) drug therapy; Z79.82 Long term (current) use of aspirin; I10 Essential (primary) hypertension; E78.5 Hyperlipidemia, unspecified; Z87.891 Personal history of nicotine dependence
CPT/HCPCS: 99284

== ENCOUNTER 2019-01-31 16:16 | Observation (INO) | payer MEDICARE, SELFPAY ==
[~2019-01-31] VITALS: Ht 165.1 cm; Wt 67.3 kg
[~2019-01-31 16:16] MED LIST changes: -LO-DOSE ASPIRIN81 MG PO; -LOSA50 PO
[2019-01-31 17:17] LABS: Alanine Aminotransfer (ALT/SGP 16 U/L (12-78); Albumin, Blood 2.8 g/dL (3.4-5.0); Albumin/Globulin Ratio 0.6 (0.8-1.8); Alk Phos 96 U/L (50-136); Anion Gap 9 mmol/L (6-16); Aspartate Aminotrans (AST/SGOT 14 U/L (12-37); Bilirubin, Total 0.5 mg/dL (0.1-1.0); Blood Urea Nitrogen 19 mg/dL (8-24); Bun/Creatinine Ratio 16.5 (12.0-20.0); CO2, Blood 25 mmol/L (21-32); Calcium, Blood 10.8 mg/dL (8.5-10.1); Chloride, Blood 99 mmol/L (98-108); Creatinine, Blood 1.15 mg/dL (0.40-1.00); Globulin, Blood 4.9 g/dL (2.2-4.0); Glomerular Filtration Rate 48 (60-); Glucose, Blood 118 mg/dL (70-99); Sodium, Blood 133 mmol/L (136-145); Total Protein, Blood 7.7 g/dL (6.4-8.2); Troponin I <0.015 ng/mL (0.000-0.040)
[2019-01-31 17:39] LABS: BASOPHILS ABSOLUTE AUTO 0.03 K/mm3 (0.00-0.23); BASOPHILS PERCENT AUTO 0 % (0-2); EOSINOPHILS ABSOLUTE AUTO 0.17 K/mm3 (0.00-0.68); EOSINOPHILS PERCENT AUTO 1 % (0-6); Hematocrit 32.8 % (33.0-51.0); Hemoglobin 10.2 g/dL (11.5-16.0); IMMATURE GRAN PERCENT AUTO 1 % (0-1); LYMPHOCYTES ABSOLUTE AUTO 2.02 K/mm3 (0.84-5.20); LYMPHOCYTES PERCENT AUTO 13 % (21-46); MONOCYTES ABSOLUTE AUTO 1.24 K/mm3 (0.16-1.47); MONOCYTES PERCENT AUTO 8 % (4-13); Mean Corpuscular HGB 30.4 pg (26.0-34.0); Mean Corpuscular HGB Conc 31.1 g/dL (31.5-36.5); Mean Corpuscular Volume 98 fL (80-100); Mean Platelet Volume 9.1 fL (9.1-12.4); NEUTROPHILS ABSOLUTE AUTO 11.92 K/mm3 (1.96-9.15); NEUTROPHILS PERCENT AUTO 77 % (41-73); Platelet Count 384 K/mm3 (150-400); RDW Coefficient Variation 14.6 % (11.7-14.2); RDW Standard Deviation 52.4 fL (35.1-46.3); Red Blood Cell Count 3.36 M/mm3 (3.80-5.20); White Blood Cell Count 15.48 K/mm3 (4.00-11.30)
[2019-01-31 18:17] LABS: Source, Urine Catheter
[2019-01-31 18:23] LABS: Blood, Urine 5+ (Neg); Glucose Qualitative, Urine Neg (Neg); Ketones, Urine 1+ (Neg); Leukocyte Esterase, Urine 3+ (Neg); Nitrite, Urine Pos (Neg); Protein, Urine 3+ (Neg); Specific Gravity, Urine 1.025 (1.003-1.022); Urobilinogen, Urine 1+ (Normal)
[2019-01-31 18:47] LABS: Bilirubin, Urine 2+ (Neg)
[2019-01-31 18:48] LABS: Appearance, Urine Cloudy (Clear); Color, Urine Yellow (P-Yellow)
[2019-01-31 18:53] LABS: White Blood Cells, Urine TNTC /hpf (0-5)
[2019-01-31 18:56] LABS: Bacteria Many /hpf; Squamous Epithelial Cells Mod /hpf (Few)
[2019-01-31 18:57] LABS: Amorphous Light (0-Heavy); Hyaline Casts 0-2 /lpf (0-2); Mucus Light (0-Heavy)
--- NOTE | 2019-02-01 11:20 | NUR ---
ASSUMED CARE OF PT- PT IS BEING ADMITTED FOR OBSERVATION AFTER A YNCOPAL EPISODE YESTERDAY AT [facility]. PT RESIDES AT [facility] FOR REHAB POST HIP REPLACEMENT. PER REPORT FROM ED [facility], PT HAS HAD NO COMPLAINTS TODAY OF PAIN OR DIZZINESS. PT ALERT AND ORIENTED PER REPORT.
--- NOTE | 2019-02-01 18:37 | NUR ---
SHIFT SUMMARY- PT ADMITTED THROUGH THE ED FOR SYNCOPE. NO CURRENT C/O PAIN, NO SKIN BREAKDOWN NOTED ON ASSESSMENT. PT HAS HAD NO DIZZINESS OR CONFUSION, PT HAD A HIP REPLACEMENT RECENTLY AND HAS BEEN RESIDING AT [facility] FOR REHAB. AWAITING DISCHARGE BACK TO [facility] WHEN BED IS AVAILABLE.
--- NOTE | 2019-02-02 07:39 | NUR ---
02/02/19 0600 VITALS STABLE AND SLEPT WELL LAST NIGHT. INCONTINENT OF URINE AND CHANGED REGULARLY. REPOSITIONED SIDE TO SIDE.
[2019-02-02] MEDS ORDERED: Norco 5-325 Ta1 EACH PO (11:48)
[2019-02-02] MEDS ORDERED: CIPR250 PO (11:51)
--- NOTE | 2019-02-02 15:35 | NUR ---
PT TRANSFERED TO [facility] VIA [facility] TRANSPORTATION. PT AOX4 AND COOPERATIVE OF CARE. ONE PERSON TRANSFER WITH GAIT BELT AND WALKER. PT HAD PERSONAL BELONGINGS TAKEN BY HER . REPORT CALLED OVER [facility] TO DISCHARGE. PACKENT SENT WITH SPIRAL GEAR GENERATOR. NO DISTRESS NOTED.
== END 2019-02-02 15:31 ==
LOC: ER 16:16 → ERHOLD 16:17 → MEDS 02-01 11:23
PROVIDERS: Emergency Medicine; ADMIT Internal Medicine
DX: R55 Syncope and collapse (principal); I25.10 Atherosclerotic heart disease of native coronary artery without angina pectoris; K21.9 Gastro-esophageal reflux disease without esophagitis; E03.9 Hypothyroidism, unspecified; E86.0 Dehydration; R79.89 Other specified abnormal findings of blood chemistry; R94.4 Abnormal results of kidney function studies; N39.0 Urinary tract infection, site not specified; I10 Essential (primary) hypertension; E78.5 Hyperlipidemia, unspecified; Z88.1 Allergy status to other antibiotic agents; Z88.8 Allergy status to other drugs, medicaments and biological substances; Z79.82 Long term (current) use of aspirin; Z79.899 Other long term (current) drug therapy; Z87.891 Personal history of nicotine dependence; Z95.1 Presence of aortocoronary bypass graft
CPT/HCPCS: 36415; 71045; 71260; 80053; 81001; 82550; 83605; 84443; 84484; 85025; 85379; 87040; 87077; 87086; 87186; 93005; 93010; 96361; 96365; 96372; 96372-59; 97162; 97530; 99285-25; G0378; J0696; J1650; J7030; P9612; Q9967

== ENCOUNTER 2019-03-16 15:38 | Observation (INO) | payer MEDICARE, SELFPAY ==
[~2019-03-16] VITALS: Ht 165.1 cm; Wt 63.0 kg
[~2019-03-16 15:38] MED LIST changes: +CIPR250 PO
[2019-03-16 16:43] LABS: BASOPHILS ABSOLUTE AUTO 0.03 K/mm3 (0.00-0.23); BASOPHILS PERCENT AUTO 0 % (0-2); EOSINOPHILS ABSOLUTE AUTO 0.13 K/mm3 (0.00-0.68); EOSINOPHILS PERCENT AUTO 1 % (0-6); Hemoglobin 10.3 g/dL (11.5-16.0); IMMATURE GRAN ABSOLUTE AUTO 0.06 K/mm3 (0.00-0.10); IMMATURE GRAN PERCENT AUTO 1 % (0-1); LYMPHOCYTES PERCENT AUTO 18 % (21-46); MONOCYTES ABSOLUTE AUTO 0.62 K/mm3 (0.16-1.47); MONOCYTES PERCENT AUTO 5 % (4-13); Mean Corpuscular HGB 30.2 pg (26.0-34.0); Mean Corpuscular HGB Conc 31.2 g/dL (31.5-36.5); Mean Corpuscular Volume 97 fL (80-100); Mean Platelet Volume 9.1 fL (9.1-12.4); NEUTROPHILS PERCENT AUTO 75 % (41-73); Platelet Count 380 K/mm3 (150-400); RDW Coefficient Variation 13.8 % (11.7-14.2); RDW Standard Deviation 49.2 fL (35.1-46.3); Red Blood Cell Count 3.41 M/mm3 (3.80-5.20); White Blood Cell Count 13.14 K/mm3 (4.00-11.30)
[2019-03-16 17:07] LABS: Alanine Aminotransfer (ALT/SGP 14 U/L (12-78); Albumin, Blood 2.8 g/dL (3.4-5.0); Albumin/Globulin Ratio 0.7 (0.8-1.8); Alk Phos 78 U/L (50-136); Anion Gap 5 mmol/L (6-16); Aspartate Aminotrans (AST/SGOT 13 U/L (12-37); Bilirubin, Total 0.3 mg/dL (0.1-1.0); Blood Urea Nitrogen 18 mg/dL (8-24); Bun/Creatinine Ratio 21.2 (12.0-20.0); CO2, Blood 27 mmol/L (21-32); Calcium, Blood 10.2 mg/dL (8.5-10.1); Chloride, Blood 105 mmol/L (98-108); Creatinine, Blood 0.85 mg/dL (0.40-1.00); Globulin, Blood 3.8 g/dL (2.2-4.0); Glomerular Filtration Rate >60 (60-); Glucose, Blood 106 mg/dL (70-99); Potassium, Blood 3.5 mmol/L (3.5-5.5); Sodium, Blood 137 mmol/L (136-145); Total Protein, Blood 6.6 g/dL (6.4-8.2)
[2019-03-16 17:10] LABS: Source, Urine Catheter
[2019-03-16 17:13] LABS: Blood, Urine Neg (Neg); Glucose Qualitative, Urine Neg (Neg); Ketones, Urine Neg (Neg); Leukocyte Esterase, Urine 1+ (Neg); Nitrite, Urine Neg (Neg); Protein, Urine 2+ (Neg); Specific Gravity, Urine 1.025 (1.003-1.022); Urobilinogen, Urine 1+ (Normal)
[2019-03-16 17:25] LABS: Appearance, Urine Hazy (Clear); Bilirubin, Urine 1+ (Neg); Color, Urine Yellow (P-Yellow)
[2019-03-16 17:27] LABS: Bacteria Many /hpf; Mucus Light (0-Heavy); Red Blood Cells, Urine 0-2 /hpf (0-2); Squamous Epithelial Cells Few /hpf (Few)
[2019-03-16] MEDS ORDERED: PANT40 PO (18:33)
[2019-03-16] MEDS ORDERED: CLOP75 PO (18:33)
[2019-03-16] MEDS ORDERED: VENL150ER PO (18:34)
[2019-03-16] MEDS ORDERED: METO25ER PO (18:34)
[2019-03-16] MEDS ORDERED: LOSA50 PO (18:34)
[2019-03-16] MEDS ORDERED: Isosorbide Mono60 MG PO (18:35)
[2019-03-16] MEDS ORDERED: Primidone50 MG PO (18:35)
[2019-03-16] MEDS ORDERED: Amlodipine Bes2.5 MG PO (18:36)
[2019-03-16] MEDS ORDERED: Aspirin EC81 MG PO (18:38)
[2019-03-17 04:58] LABS: BASOPHILS ABSOLUTE AUTO 0.03 K/mm3 (0.00-0.23); BASOPHILS PERCENT AUTO 0 % (0-2); EOSINOPHILS ABSOLUTE AUTO 0.15 K/mm3 (0.00-0.68); EOSINOPHILS PERCENT AUTO 2 % (0-6); Hematocrit 32.3 % (33.0-51.0); Hemoglobin 10.1 g/dL (11.5-16.0); IMMATURE GRAN ABSOLUTE AUTO 0.03 K/mm3 (0.00-0.10); IMMATURE GRAN PERCENT AUTO 0 % (0-1); LYMPHOCYTES ABSOLUTE AUTO 3.15 K/mm3 (0.84-5.20); LYMPHOCYTES PERCENT AUTO 34 % (21-46); MONOCYTES ABSOLUTE AUTO 0.78 K/mm3 (0.16-1.47); MONOCYTES PERCENT AUTO 8 % (4-13); Mean Corpuscular HGB 30.1 pg (26.0-34.0); Mean Corpuscular HGB Conc 31.3 g/dL (31.5-36.5); Mean Corpuscular Volume 96 fL (80-100); Mean Platelet Volume 9.1 fL (9.1-12.4); NEUTROPHILS ABSOLUTE AUTO 5.15 K/mm3 (1.96-9.15); NEUTROPHILS PERCENT AUTO 56 % (41-73); Platelet Count 346 K/mm3 (150-400); RDW Coefficient Variation 13.6 % (11.7-14.2); RDW Standard Deviation 48.6 fL (35.1-46.3); Red Blood Cell Count 3.35 M/mm3 (3.80-5.20); White Blood Cell Count 9.29 K/mm3 (4.00-11.30)
[2019-03-17 05:33] LABS: Alanine Aminotransfer (ALT/SGP 8 U/L (12-78); Albumin, Blood 2.6 g/dL (3.4-5.0); Albumin/Globulin Ratio 0.7 (0.8-1.8); Alk Phos 75 U/L (50-136); Anion Gap 6 mmol/L (6-16); Aspartate Aminotrans (AST/SGOT 10 U/L (12-37); Bilirubin, Total 0.2 mg/dL (0.1-1.0); Blood Urea Nitrogen 20 mg/dL (8-24); Bun/Creatinine Ratio 23.4 (12.0-20.0); CO2, Blood 27 mmol/L (21-32); Chloride, Blood 106 mmol/L (98-108); Creatinine, Blood 0.86 mg/dL (0.40-1.00); Globulin, Blood 3.9 g/dL (2.2-4.0); Glomerular Filtration Rate >60 (60-); Glucose, Blood 79 mg/dL (70-99); Potassium, Blood 3.3 mmol/L (3.5-5.5); Sodium, Blood 139 mmol/L (136-145); Total Protein, Blood 6.5 g/dL (6.4-8.2)
--- NOTE | 2019-03-17 07:26 | NUR ---
03/17/19 0630 AT BEDSIDE. PT SLEPT WELL LAST NIGHT. CALLS APPROPRIATELY TO GET UP TO BSC FOR VOIDING AND FOR A BM. BP WAS ELEVATED EARLIER IN AM BUT HAS COME DOWN RECENTLY. STABLE ON HEART MONITOR.
--- NOTE | 2019-03-17 17:21 | NUR ---
PT AOX3 AND COOPERATIVE OF CARE. PT IS A ONE PERSON WITH WALKER TO BEDSIDE COMMODE. PT HAS BEEN VERY TIRED AND TAKES FREQUENT NAPS. PT RESTING NO DISTRESS NOTED.
--- NOTE | 2019-03-18 06:41 | NUR ---
SHIFT SUMMARY NO COMPLAINTS OR ACUTE CHANGES OVERNIGHT. PATIENT SLEPT THROUGH NIGHT. INCONTINENT WHILE SLEEPIG. UP TO BSC AND CHAIR WITH 1 PERSON ASSIST AND FWW. WILL ONTINUE TO FOLLOW
[2019-03-18] MEDS ORDERED: GABA100 PO (13:18)
[2019-03-18] MEDS ORDERED: CEFP200 PO (13:20)
--- NOTE | 2019-03-18 14:30 | NUR ---
REVIEW D'C W/PATIENT AND MULTIPLE RELATIVES. AWARE 2 MEDS AT [facility]. HAS F/U WITH PCP ON MARCH 25 @8354. HH IN TO TALK TO PATIENT AND FAMILY. ANSWER ALL QUESTIONS. WILL CALL [facility] WHEN PATIENT READY.
== END 2019-03-18 15:05 | disposition home health service (06) ==
LOC: ER 15:38 → MEDS 15:39 → ENPENDDIS 03-18 12:20 → MEDS 03-18 15:05
PROVIDERS: Physician Assistant; ADMIT Internal Medicine
DX: N39.0 Urinary tract infection, site not specified (principal); R53.1 Weakness; R55 Syncope and collapse; I25.10 Atherosclerotic heart disease of native coronary artery without angina pectoris; E03.9 Hypothyroidism, unspecified; I10 Essential (primary) hypertension; K21.9 Gastro-esophageal reflux disease without esophagitis; Z87.891 Personal history of nicotine dependence; Z88.1 Allergy status to other antibiotic agents; Z88.8 Allergy status to other drugs, medicaments and biological substances; Z79.02 Long term (current) use of antithrombotics/antiplatelets; Z79.899 Other long term (current) drug therapy
CPT/HCPCS: 36415; 71046; 80053; 81001; 83735; 85025; 87086; 93005; 93010; 96365; 96366; 96372; 97110; 97116; 97161; 97530; 99285-25; G0378; J0696; J1650; J7030; J7050

== ENCOUNTER → 2019-05-06 | Outpatient (CLI) | payer MEDICARE, SELFPAY ==
[~2019-05-06] MED LIST changes: +Amlodipine Bes2.5 MG PO; +Aspirin EC81 MG PO; +CEFP200 PO; +Isosorbide Mono60 MG PO; +LOSA50 PO
[2019-05-06 16:28] LABS: Source, Urine Clean Catch
[2019-05-06 18:21] LABS: Bilirubin, Urine Neg (Neg); Blood, Urine Neg (Neg); Glucose Qualitative, Urine Neg (Neg); Ketones, Urine Neg (Neg); Leukocyte Esterase, Urine Neg (Neg); Nitrite, Urine Neg (Neg); Protein, Urine Neg (Neg); Specific Gravity, Urine 1.015 (1.003-1.022); Urobilinogen, Urine 1+ (Normal)
[2019-05-06 18:36] LABS: Appearance, Urine Clear (Clear); Color, Urine Yellow (P-Yellow)
== END | disposition home or self-care (01) ==
LOC: EDSTATUS 13:00 → LAB 16:27 → LAB SHORT 16:27
PROVIDERS: Internal Medicine
DX: R35.1 Nocturia (principal)
CPT/HCPCS: 81003

== ENCOUNTER 2019-06-06 17:46 | Observation (INO) | payer MEDICARE, SELFPAY ==
[~2019-06-06] VITALS: Ht 165.1 cm; Wt 68.0 kg
[2019-06-06 18:24] LABS: BASOPHILS ABSOLUTE AUTO 0.02 K/mm3 (0.00-0.23); BASOPHILS PERCENT AUTO 0 % (0-2); EOSINOPHILS ABSOLUTE AUTO 0.14 K/mm3 (0.00-0.68); EOSINOPHILS PERCENT AUTO 2 % (0-6); Hematocrit 30.8 % (33.0-51.0); Hemoglobin 9.5 g/dL (11.5-16.0); IMMATURE GRAN ABSOLUTE AUTO 0.03 K/mm3 (0.00-0.10); IMMATURE GRAN PERCENT AUTO 0 % (0-1); LYMPHOCYTES ABSOLUTE AUTO 2.43 K/mm3 (0.84-5.20); LYMPHOCYTES PERCENT AUTO 26 % (21-46); MONOCYTES ABSOLUTE AUTO 0.87 K/mm3 (0.16-1.47); MONOCYTES PERCENT AUTO 9 % (4-13); Mean Corpuscular HGB 30.5 pg (26.0-34.0); Mean Corpuscular HGB Conc 30.8 g/dL (31.5-36.5); Mean Corpuscular Volume 99 fL (80-100); Mean Platelet Volume 9.5 fL (9.1-12.4); NEUTROPHILS ABSOLUTE AUTO 6.04 K/mm3 (1.96-9.15); NEUTROPHILS PERCENT AUTO 63 % (41-73); Platelet Count 293 K/mm3 (150-400); RDW Coefficient Variation 14.1 % (11.7-14.2); RDW Standard Deviation 50.9 fL (35.1-46.3); Red Blood Cell Count 3.11 M/mm3 (3.80-5.20); White Blood Cell Count 9.53 K/mm3 (4.00-11.30)
[2019-06-06] MEDS ORDERED: ALPR.25 PO (18:26)
[2019-06-06] MEDS ORDERED: DOCU100 PO (18:27)
[2019-06-06 18:48] LABS: Alanine Aminotransfer (ALT/SGP 10 U/L (12-78); Albumin, Blood 2.7 g/dL (3.4-5.0); Albumin/Globulin Ratio 0.7 (0.8-1.8); Alk Phos 82 U/L (50-136); Anion Gap 4 mmol/L (6-16); Aspartate Aminotrans (AST/SGOT 11 U/L (12-37); Bilirubin, Total 0.2 mg/dL (0.1-1.0); Blood Urea Nitrogen 15 mg/dL (8-24); Bun/Creatinine Ratio 16.6 (12.0-20.0); CO2, Blood 25 mmol/L (21-32); Calcium, Blood 9.4 mg/dL (8.5-10.1); Chloride, Blood 108 mmol/L (98-108); Globulin, Blood 3.8 g/dL (2.2-4.0); Glomerular Filtration Rate >60 (60-); Glucose, Blood 97 mg/dL (70-99); Potassium, Blood 3.6 mmol/L (3.5-5.5); Sodium, Blood 137 mmol/L (136-145); Total Protein, Blood 6.5 g/dL (6.4-8.2); Troponin I <0.015 ng/mL (0.000-0.040)
--- NOTE | 2019-06-07 04:53 | NUR ---
SHIFT SUMMARY- PT. ARRIVED FROM ED INTO ROOM VIA STRETCHER. TRANSFERRED ONTO BED BY NURSING STAFF. PT. A&OX3 CALLS APPROPRIATELY, ON BEDREST. STATED UNABLE TO STAND OR AMBULATE VERY WELL. PT. INCONTINENT, ATTENDS IN PLACE. DENIED ANY CP T/O THE SHIFT. NO APPARENT DISTRESS NOTED. CALL LIGHT WITHIN REACH AND SIDE RAILS UP X3. WILL CONT TO MONITOR.
--- NOTE | 2019-06-07 11:55 | NUR ---
Echocardiogram completed.
[2019-06-07 14:50] LABS: Source, Urine Clean Catch
[2019-06-07 14:59] LABS: Bilirubin, Urine Neg (Neg); Blood, Urine Neg (Neg); Glucose Qualitative, Urine Neg (Neg); Ketones, Urine Neg (Neg); Leukocyte Esterase, Urine Neg (Neg); Nitrite, Urine Neg (Neg); Protein, Urine Neg (Neg); Specific Gravity, Urine 1.015 (1.003-1.022); Urobilinogen, Urine NORM (Normal)
[2019-06-07 15:07] LABS: Appearance, Urine Clear (Clear); Color, Urine Yellow (P-Yellow)
--- NOTE | 2019-06-07 17:43 | NUR ---
recieved a call from [facility]- attempted three times to call back, no answer. monorail charger operator attempting to contact them now. pt daughter plans to transport her home.
[2019-06-07] MEDS ORDERED: ACET325 PO (17:50)
--- NOTE | 2019-06-07 18:13 | NUR ---
SHIFT SUMMARY- PT ALERT AND ORIENTED 1PA FOR SAFETY TO THE BATHROOM. PT HAS COMPLETED DISCHARGE ORDERS IN [facility], FAMILY IS AWARE OF DISCHARGE [place] [place]. (SEE PREVIOUS NOTE FOR DETAILS) PT FAMILY IS PLANNING TO COME PICK HER UP TO TAKE HER BACK TO HER ASSISTED LIVING FACILITY, AWAITING THEIR ARRIVAL TO GO OVER PT DISCHARGE INSTRUCTIONS. PT HAD A FULL SHOWER, TELE DC'D. PT CURRENTLY SITTING UP IN BED EATING DINNER.
== END 2019-06-07 19:20 | disposition home health service (06) ==
LOC: ER 17:46 → MEDS 17:47
PROVIDERS: Emergency Medicine; Family Medicine; ADMIT Hospitalist
DX: I08.3 Combined rheumatic disorders of mitral, aortic and tricuspid valves (principal); I25.10 Atherosclerotic heart disease of native coronary artery without angina pectoris; I10 Essential (primary) hypertension; I48.0 Paroxysmal atrial fibrillation; E03.9 Hypothyroidism, unspecified; K21.9 Gastro-esophageal reflux disease without esophagitis; G30.9 Alzheimer's disease, unspecified; F02.80 Dementia in other diseases classified elsewhere, unspecified severity, without behavioral disturbance, psychotic disturbance, mood disturbance, and anxiety; Z95.5 Presence of coronary angioplasty implant and graft; Z87.891 Personal history of nicotine dependence; Z91.048 Other nonmedicinal substance allergy status; Z88.8 Allergy status to other drugs, medicaments and biological substances; Z91.09 Other allergy status, other than to drugs and biological substances; Z88.1 Allergy status to other antibiotic agents; Z79.899 Other long term (current) drug therapy; Z79.82 Long term (current) use of aspirin; Z79.01 Long term (current) use of anticoagulants
CPT/HCPCS: 36415; 71046; 80053; 81003; 83880; 84484; 85025; 92610; 93005; 93010; 93306; 96372; 99285-25; G0378; J1650

== ENCOUNTER 2019-07-06 16:26 | Emergency (ER) | payer MEDICARE, SELFPAY ==
[~2019-07-06] VITALS: Ht 162.6 cm; Wt 68.0 kg
== END 2019-07-06 17:34 | disposition home or self-care (01) ==
LOC: ER 16:26
DX: M25.511 Pain in right shoulder (principal); I10 Essential (primary) hypertension; E78.5 Hyperlipidemia, unspecified; I25.10 Atherosclerotic heart disease of native coronary artery without angina pectoris; K21.9 Gastro-esophageal reflux disease without esophagitis; F32.9 Major depressive disorder, single episode, unspecified; Z87.440 Personal history of urinary (tract) infections; Z87.891 Personal history of nicotine dependence; Z88.8 Allergy status to other drugs, medicaments and biological substances; Z91.048 Other nonmedicinal substance allergy status; Z88.1 Allergy status to other antibiotic agents; Z79.899 Other long term (current) drug therapy; Z79.02 Long term (current) use of antithrombotics/antiplatelets; Z79.82 Long term (current) use of aspirin
CPT/HCPCS: 73030

== ENCOUNTER 2019-08-02 10:21 | Emergency (ER) | payer MEDICARE, SELFPAY ==
[~2019-08-02] VITALS: Ht 167.6 cm; Wt 83.5 kg
[~2019-08-02 10:21] MED LIST changes: -Aspirin EC81 MG PO; -Isosorbide Mono60 MG PO; -LOSA50 PO
[2019-08-02 11:26] LABS: BASOPHILS ABSOLUTE AUTO 0.01 K/mm3 (0.00-0.23); BASOPHILS PERCENT AUTO 0 % (0-2); EOSINOPHILS ABSOLUTE AUTO 0.13 K/mm3 (0.00-0.68); EOSINOPHILS PERCENT AUTO 2 % (0-6); Hematocrit 29.1 % (33.0-51.0); Hemoglobin 8.8 g/dL (11.5-16.0); IMMATURE GRAN ABSOLUTE AUTO 0.02 K/mm3 (0.00-0.10); IMMATURE GRAN PERCENT AUTO 0 % (0-1); LYMPHOCYTES ABSOLUTE AUTO 2.22 K/mm3 (0.84-5.20); LYMPHOCYTES PERCENT AUTO 28 % (21-46); MONOCYTES ABSOLUTE AUTO 0.88 K/mm3 (0.16-1.47); MONOCYTES PERCENT AUTO 11 % (4-13); Mean Corpuscular HGB 28.3 pg (26.0-34.0); Mean Corpuscular HGB Conc 30.2 g/dL (31.5-36.5); Mean Corpuscular Volume 94 fL (80-100); Mean Platelet Volume 9.5 fL (9.1-12.4); NEUTROPHILS ABSOLUTE AUTO 4.69 K/mm3 (1.96-9.15); NEUTROPHILS PERCENT AUTO 59 % (41-73); Platelet Count 373 K/mm3 (150-400); RDW Coefficient Variation 13.7 % (11.7-14.2); Red Blood Cell Count 3.11 M/mm3 (3.80-5.20); White Blood Cell Count 7.95 K/mm3 (4.00-11.30)
[2019-08-02 11:52] LABS: Alanine Aminotransfer (ALT/SGP 12 U/L (12-78); Albumin, Blood 2.8 g/dL (3.4-5.0); Albumin/Globulin Ratio 0.6 (0.8-1.8); Alk Phos 87 U/L (50-136); Anion Gap 7 mmol/L (6-16); Aspartate Aminotrans (AST/SGOT 8 U/L (12-37); Bilirubin, Total 0.3 mg/dL (0.1-1.0); Blood Urea Nitrogen 13 mg/dL (8-24); Bun/Creatinine Ratio 14.6 (12.0-20.0); CO2, Blood 27 mmol/L (21-32); Calcium, Blood 9.8 mg/dL (8.5-10.1); Chloride, Blood 105 mmol/L (98-108); Creatinine, Blood 0.89 mg/dL (0.40-1.00); Globulin, Blood 4.4 g/dL (2.2-4.0); Glomerular Filtration Rate >60 (60-); Glucose, Blood 108 mg/dL (70-99); Potassium, Blood 3.8 mmol/L (3.5-5.5); Sodium, Blood 139 mmol/L (136-145); Total Protein, Blood 7.2 g/dL (6.4-8.2); Troponin I <0.015 ng/mL (0.000-0.040)
== END 2019-08-02 12:35 | disposition home or self-care (01) ==
LOC: ER 10:21
PROVIDERS: Emergency Medicine
DX: R68.84 Jaw pain (principal); D64.9 Anemia, unspecified; Z88.8 Allergy status to other drugs, medicaments and biological substances; Z91.048 Other nonmedicinal substance allergy status; Z88.1 Allergy status to other antibiotic agents; Z88.5 Allergy status to narcotic agent; Z79.899 Other long term (current) drug therapy; Z79.82 Long term (current) use of aspirin; I10 Essential (primary) hypertension; E78.5 Hyperlipidemia, unspecified; I48.0 Paroxysmal atrial fibrillation; F32.9 Major depressive disorder, single episode, unspecified; E03.9 Hypothyroidism, unspecified; I25.10 Atherosclerotic heart disease of native coronary artery without angina pectoris; K21.9 Gastro-esophageal reflux disease without esophagitis
CPT/HCPCS: 80053; 84484; 85025; 93005; 93010; 99284-25

== ENCOUNTER → 2019-08-04 | Outpatient (CLI) | payer MEDICARE, OTHER ==
[~2019-08-04] MED LIST changes: +ASCO500 PO; +ATROPINE SULFATE2 ML SL; +Aspirin EC81 MG PO; +Ativan1 MG PO; +FERSU300 PO; +LOSA50 PO; +MORP20L SL; +Macrobid 100 M100 MG PO; +NITR100CA PO; +ONDA4 PO; +ONDA4ODT MM
[2019-08-05 13:42] LABS: Stool Occult Blood Guaiac 1 Neg (Neg)
[2019-08-05 13:43] LABS: Stool Occult Blood Guaiac 2 Neg (Neg); Stool Occult Blood Guaiac 3 Neg (Neg)
[2019-08-09 15:06] LABS: M-SPIKE, % Not Observed % (Not Observed); PROTEIN,TOTAL,URINE 12.4 mg/dL (Not Estab.)
== END | disposition home or self-care (01) ==
LOC: LAB 19:28 → LAB SHORT 19:28
PROVIDERS: Internal Medicine
DX: E83.52 Hypercalcemia (principal); D64.9 Anemia, unspecified; R77.9 Abnormality of plasma protein, unspecified
CPT/HCPCS: 81050; 82270; 84166; 86335

== ENCOUNTER 2019-08-18 11:18 | Emergency (ER) | payer MEDICARE ==
[~2019-08-18] VITALS: Ht 165.1 cm; Wt 70.3 kg
[~2019-08-18 11:18] MED LIST changes: -ASCO500 PO; -ATROPINE SULFATE2 ML SL; -Aspirin EC81 MG PO; -Ativan1 MG PO; -FERSU300 PO; -LOSA50 PO; -MORP20L SL; -Macrobid 100 M100 MG PO; -NITR100CA PO; -ONDA4 PO; -ONDA4ODT MM
[2019-08-18 11:55] LABS: BASOPHILS ABSOLUTE AUTO 0.02 K/mm3 (0.00-0.23); BASOPHILS PERCENT AUTO 0 % (0-2); EOSINOPHILS ABSOLUTE AUTO 0.05 K/mm3 (0.00-0.68); EOSINOPHILS PERCENT AUTO 0 % (0-6); Hemoglobin 9.4 g/dL (11.5-16.0); IMMATURE GRAN ABSOLUTE AUTO 0.06 K/mm3 (0.00-0.10); IMMATURE GRAN PERCENT AUTO 1 % (0-1); LYMPHOCYTES ABSOLUTE AUTO 2.42 K/mm3 (0.84-5.20); LYMPHOCYTES PERCENT AUTO 20 % (21-46); MONOCYTES ABSOLUTE AUTO 1.14 K/mm3 (0.16-1.47); MONOCYTES PERCENT AUTO 10 % (4-13); Mean Corpuscular HGB 27.8 pg (26.0-34.0); Mean Corpuscular HGB Conc 30.3 g/dL (31.5-36.5); Mean Corpuscular Volume 92 fL (80-100); Mean Platelet Volume 9.4 fL (9.1-12.4); NEUTROPHILS ABSOLUTE AUTO 8.17 K/mm3 (1.96-9.15); NEUTROPHILS PERCENT AUTO 69 % (41-73); NRBC ABSOLUTE 0.02 K/mm3 (0.00-0.02); NRBC Auto 0.2 /100 WBC (0.0-0.2); Platelet Count 453 K/mm3 (150-400); RDW Coefficient Variation 14.9 % (11.7-14.2); RDW Standard Deviation 48.7 fL (35.1-46.3); Red Blood Cell Count 3.38 M/mm3 (3.80-5.20); White Blood Cell Count 11.86 K/mm3 (4.00-11.30)
[2019-08-18 12:07] LABS: Source, Urine Catheter
[2019-08-18 12:09] LABS: Bilirubin, Urine Neg (Neg); Blood, Urine Neg (Neg); Glucose Qualitative, Urine Neg (Neg); Ketones, Urine Neg (Neg); Leukocyte Esterase, Urine 1+ (Neg); Nitrite, Urine Neg (Neg); Protein, Urine 3+ (Neg); Specific Gravity, Urine 1.025 (1.003-1.022); Urobilinogen, Urine 2+ (Normal)
[2019-08-18 12:12] LABS: Appearance, Urine Clear (Clear); Color, Urine Yellow (P-Yellow)
[2019-08-18 12:13] LABS: Albumin, Blood 3.1 g/dL (3.4-5.0); Albumin/Globulin Ratio 0.7 (0.8-1.8); Bilirubin, Total 0.5 mg/dL (0.1-1.0); Bun/Creatinine Ratio 19.2 (12.0-20.0); Calcium, Blood 10.3 mg/dL (8.5-10.1); Creatinine, Blood 0.99 mg/dL (0.40-1.00); Globulin, Blood 4.5 g/dL (2.2-4.0); Potassium, Blood 3.6 mmol/L (3.5-5.5); Total Protein, Blood 7.6 g/dL (6.4-8.2)
[2019-08-18 12:16] LABS: Bacteria Many /hpf; Mucus Light (0-Heavy); Red Blood Cells, Urine 0-2 /hpf (0-2); Squamous Epithelial Cells Few /hpf (Few)
[2019-08-18 12:45] LABS: Influenza A Negative (NEGATIVE); Influenza B Negative (NEGATIVE)
[2019-08-18] MEDS ORDERED: ONDA4ODT MM (14:04)
[2019-08-18] MEDS ORDERED: Macrobid 100 M100 MG PO (14:04)
== END 2019-08-18 14:30 | disposition home or self-care (01) ==
LOC: ER 11:18
PROVIDERS: Emergency Medicine
DX: N39.0 Urinary tract infection, site not specified (principal); E86.0 Dehydration; F03.90 Unspecified dementia, unspecified severity, without behavioral disturbance, psychotic disturbance, mood disturbance, and anxiety; I10 Essential (primary) hypertension; I25.10 Atherosclerotic heart disease of native coronary artery without angina pectoris; I48.0 Paroxysmal atrial fibrillation; E03.9 Hypothyroidism, unspecified; K21.9 Gastro-esophageal reflux disease without esophagitis; Z88.8 Allergy status to other drugs, medicaments and biological substances; Z91.048 Other nonmedicinal substance allergy status; Z88.1 Allergy status to other antibiotic agents; Z88.5 Allergy status to narcotic agent; Z79.899 Other long term (current) drug therapy; Z79.01 Long term (current) use of anticoagulants; Z79.82 Long term (current) use of aspirin; Z87.891 Personal history of nicotine dependence; Z95.5 Presence of coronary angioplasty implant and graft
CPT/HCPCS: 36415; 51701; 74022; 80053; 81001; 85025; 87086; 87804; 96361-59; 96374-59; 96375-59; 99284-25; J0696; J2405; J7030

== ENCOUNTER 2019-08-20 13:27 | Inpatient (IN) | payer MEDICARE ==
[~2019-08-20] VITALS: Ht 157.5 cm; Wt 70.2 kg
[~2019-08-20 13:27] MED LIST changes: +Macrobid 100 M100 MG PO; +ONDA4ODT MM
[2019-08-20 14:23] LABS: BASOPHILS ABSOLUTE AUTO 0.02 K/mm3 (0.00-0.23); BASOPHILS PERCENT AUTO 0 % (0-2); EOSINOPHILS ABSOLUTE AUTO 0.01 K/mm3 (0.00-0.68); EOSINOPHILS PERCENT AUTO 0 % (0-6); Hematocrit 28.2 % (33.0-51.0); Hemoglobin 8.8 g/dL (11.5-16.0); IMMATURE GRAN ABSOLUTE AUTO 0.09 K/mm3 (0.00-0.10); IMMATURE GRAN PERCENT AUTO 1 % (0-1); LYMPHOCYTES ABSOLUTE AUTO 1.54 K/mm3 (0.84-5.20); LYMPHOCYTES PERCENT AUTO 11 % (21-46); MONOCYTES PERCENT AUTO 10 % (4-13); Mean Corpuscular HGB 28.5 pg (26.0-34.0); Mean Corpuscular HGB Conc 31.2 g/dL (31.5-36.5); Mean Corpuscular Volume 91 fL (80-100); NEUTROPHILS ABSOLUTE AUTO 10.49 K/mm3 (1.96-9.15); NEUTROPHILS PERCENT AUTO 78 % (41-73); NRBC ABSOLUTE 0.04 K/mm3 (0.00-0.02); NRBC Auto 0.3 /100 WBC (0.0-0.2); RDW Coefficient Variation 14.7 % (11.7-14.2); RDW Standard Deviation 47.9 fL (35.1-46.3); Red Blood Cell Count 3.09 M/mm3 (3.80-5.20); White Blood Cell Count 13.45 K/mm3 (4.00-11.30)
[2019-08-20 14:29] LABS: Mean Platelet Volume 10.5 fL (9.1-12.4); Platelet Count 324 K/mm3 (150-400)
[2019-08-20 14:48] LABS: Albumin, Blood 2.9 g/dL (3.4-5.0); Albumin/Globulin Ratio 0.7 (0.8-1.8); Bilirubin, Total 0.7 mg/dL (0.1-1.0); Bun/Creatinine Ratio 24.5 (12.0-20.0); Calcium, Blood 9.8 mg/dL (8.5-10.1); Creatinine, Blood 1.1 mg/dL (0.40-1.00); Globulin, Blood 4.2 g/dL (2.2-4.0); Potassium, Blood 4.1 mmol/L (3.5-5.5); Total Protein, Blood 7.1 g/dL (6.4-8.2)
[2019-08-20] MEDS ORDERED: Aspirin EC81 MG PO (17:03)
[2019-08-20] MEDS ORDERED: CLOP75 PO (17:03)
[2019-08-20] MEDS ORDERED: PANT40 PO (17:04)
[2019-08-20] MEDS ORDERED: VENL150ER PO (17:04)
[2019-08-20] MEDS ORDERED: LOSA50 PO (17:05)
[2019-08-20] MEDS ORDERED: METO25ER PO (17:05)
[2019-08-20] MEDS ORDERED: Primidone50 MG PO (17:07)
[2019-08-20] MEDS ORDERED: Isosorbide Mono30 MG PO (17:09)
[2019-08-20] MEDS ORDERED: DOCU100 PO (17:10)
[2019-08-20] MEDS ORDERED: ALPR.25 PO (17:10)
[2019-08-20] MEDS ORDERED: ACET325 PO (17:11)
[2019-08-20] MEDS ORDERED: FERSU300 PO (17:11)
[2019-08-20] MEDS ORDERED: ASCO500 PO (17:13)
[2019-08-20] MEDS ORDERED: ONDA4 PO (17:13)
--- NOTE | 2019-08-20 18:49 | NUR ---
.RECEIVED REPORT FROM MELINDA SALVADOR RN, AT [phone]. PATIENT TO BE TRANSFERED TO ROOM
[2019-08-20] MEDS ORDERED: NITR100CA PO (20:44)
--- NOTE | 2019-08-20 21:58 | NUR ---
PATIENT IS A NEW ADMIT FROM THE ED. THREE PERSON TRANSFER FROM [facility] TO BED. AXOX 3 WITH CONFUSION. NPO AND ON 3L O2 NC, RA BASELINE. TELEMETRY PLACED AND TECH REPORTS NSR W/PVC AT 85. PATIENT ORIENTED TO ROOM AND CALL LIGHT SYSTEM. DENIES PAIN, SOB, AND N/V. CALL LIGHT IN REACH. BED ALARM ACTIVATED.
--- NOTE | 2019-08-20 22:00 | NUR ---
NS STARTED AND INFUSING AT 100 mL/HR. IV ABX INFUSED. MEDICATION RX COMPLETE. PATIENT REPORTS SHE IS TIRED AND WOULD TO GET TO SLEEP EARLY. CALL LIGHT IN REACH. BED ALARM ACTIVATED.
--- NOTE | 2019-08-20 23:18 | NUR ---
TELEMETRY EVENT: SIX BEAT RUN OF V-TACH AT 112 AND BACK TO NSR 81 W/PVC. PATIENT SLEEPING BUT AROUSABLE. WILL CONTINUE TO MONITOR. BED ALARM. CALL LIGHT IN REACH.
--- NOTE | 2019-08-21 04:06 | NUR ---
SHIFT SUMMARY PATIENT HAD NO ACUTE CHANGES OBSERVED. AXOX 3 W/CONFUSION AT TIMES, NPO. PIV REMAINS INTACT. NS INFUSING AT 100 ml/HR. IV ABXS INFUSED. PHERESIS NURSE REPORTS SIX BEAT RUN OF V-TACH AT 112 AND BACK TO NSR @81 W/PVC. PATIENT LETHARGIC ON ADMIT BUT ABLE TO ANSWER QUESTIONS. DENIES PAIN, SOB, AND N/V. ON 3L O2 NC AND RA BASELINE. SLEPT MOST OF THE SHIFT. CALL LIGHT IN REACH. BED IN LOWEST POSITION AND ALARM ACTIVATED. WILL CONTINUE TO MONITOR UNTIL DAY SHIFT NURSE ASSUMES CARE.
[2019-08-21 05:26] LABS: BASOPHILS ABSOLUTE AUTO 0.01 K/mm3 (0.00-0.23); BASOPHILS PERCENT AUTO 0 % (0-2); EOSINOPHILS ABSOLUTE AUTO 0.03 K/mm3 (0.00-0.68); EOSINOPHILS PERCENT AUTO 0 % (0-6); Hemoglobin 8.5 g/dL (11.5-16.0); IMMATURE GRAN PERCENT AUTO 1 % (0-1); LYMPHOCYTES ABSOLUTE AUTO 1.69 K/mm3 (0.84-5.20); LYMPHOCYTES PERCENT AUTO 12 % (21-46); MONOCYTES ABSOLUTE AUTO 1.13 K/mm3 (0.16-1.47); MONOCYTES PERCENT AUTO 8 % (4-13); Mean Corpuscular HGB 27.7 pg (26.0-34.0); Mean Corpuscular HGB Conc 30.4 g/dL (31.5-36.5); Mean Corpuscular Volume 91 fL (80-100); Mean Platelet Volume 10.1 fL (9.1-12.4); NEUTROPHILS ABSOLUTE AUTO 10.81 K/mm3 (1.96-9.15); NEUTROPHILS PERCENT AUTO 79 % (41-73); NRBC ABSOLUTE 0.05 K/mm3 (0.00-0.02); NRBC Auto 0.4 /100 WBC (0.0-0.2); Platelet Count 306 K/mm3 (150-400); RDW Coefficient Variation 14.8 % (11.7-14.2); RDW Standard Deviation 48.1 fL (35.1-46.3); Red Blood Cell Count 3.07 M/mm3 (3.80-5.20); White Blood Cell Count 13.77 K/mm3 (4.00-11.30)
[2019-08-21 06:05] LABS: Percent Saturation 6.4 % (15.0-50.0)
[2019-08-21 06:30] LABS: Alanine Aminotransfer (ALT/SGP 489 U/L (12-78); Albumin, Blood 2.8 g/dL (3.4-5.0); Albumin/Globulin Ratio 0.8 (0.8-1.8); Alk Phos 125 U/L (50-136); Anion Gap 9 mmol/L (6-16); Aspartate Aminotrans (AST/SGOT 592 U/L (12-37); Bilirubin, Total 1.1 mg/dL (0.1-1.0); Blood Urea Nitrogen 25 mg/dL (8-24); Bun/Creatinine Ratio 26.7 (12.0-20.0); CO2, Blood 24 mmol/L (21-32); Calcium, Blood 9.4 mg/dL (8.5-10.1); Chloride, Blood 103 mmol/L (98-108); Creatinine, Blood 0.94 mg/dL (0.40-1.00); Globulin, Blood 3.4 g/dL (2.2-4.0); Glomerular Filtration Rate >60 (60-); Glucose, Blood 97 mg/dL (70-99); Sodium, Blood 136 mmol/L (136-145); Total Protein, Blood 6.2 g/dL (6.4-8.2)
[2019-08-21 08:57] LABS: Phosphorus, Blood 2.8 mg/dL (2.5-4.9)
--- NOTE | 2019-08-21 17:44 | NUR ---
SHIFT SUMMARY THE PATIENT HAS BEEN SLEEPING ALL SHIFT. SHE WILL WAKE AND RESPOND TO STAFF AND FAMILY/VISITORS HOWEVER GOES BACK TO SLEEP IMMEDIATELY. SHE WAS SCHEDULED A VITAMIN C SUPPLEMENT TONIGHT AT DINNER TIME HOWEVER SHE WAS TOO LETHARGIC TO SAFELY SWALLOW IT SO I HELD THE MEDICATION. IV ABX CONTINUES WITHOUT S/SX OF ADVERSE REACTIONS NOTED OR REPORTED. THE PATIENT WAS STARTED ON IV CLINIMIX FOR NUTRITIONAL VALUE SHE REMAINS NPO. VITALS HAVE BEEN STABLE. PATIENT REMAINS ON 3L O2 NC; I DID ATTEMPT TO TITRATE DOWN TO 2L HOWEVER SHE WAS UNABLE TO MAINTAIN SATS >90%. THE PATIENT CONTINUES TO REST IN BED AT THIS TIME. WILL CONTINUE TO MONITOR AND PROVIDE CARE NEEDED.
[2019-08-21 19:24] LABS: Source, Urine Catheter
[2019-08-21 19:27] LABS: Bilirubin, Urine Neg (Neg); Blood, Urine 1+ (Neg); Glucose Qualitative, Urine Neg (Neg); Ketones, Urine 1+ (Neg); Leukocyte Esterase, Urine 1+ (Neg); Nitrite, Urine Neg (Neg); Protein, Urine 3+ (Neg); Specific Gravity, Urine 1.025 (1.003-1.022); Urobilinogen, Urine 2+ (Normal)
[2019-08-21 19:31] LABS: Appearance, Urine Clear (Clear); Color, Urine Yellow (P-Yellow)
[2019-08-21 19:33] LABS: Bacteria Many /hpf; Mucus Light (0-Heavy); Red Blood Cells, Urine 0-2 /hpf (0-2); Squamous Epithelial Cells Mod /hpf (Few); White Blood Cells, Urine 0-2 /hpf (0-5)
--- NOTE | 2019-08-21 21:38 | NUR ---
TELEMETRY EVENT: TECH REPORTS PATIENT CONVERTED FROM SR 80'S W/PVC TO AFIB 116 PATIENT ASYMPTOMATIC. CHARGE NURSE NOTIFIED. VITALS WILL BE RETAKEN.
--- NOTE | 2019-08-21 22:02 | NUR ---
TELEMETRY: [facility]IRAG GARCIA PCU REPORTS AFIB INCREASED TO 120'S UP TO 140. HOSPITALIST DR TRUONG NOTIFIED AND ORDERED AN ADDITIONAL METOPROLOL 12.5 MG XL PO TIMES ONE.
--- NOTE | 2019-08-21 22:32 | NUR ---
TELEMETRY EVENT: EL CLAY REPORTS A-FIB 180-200 FOR ABOUT 55 SECONDS. MEDICATION METOPROLOL 12.5 MG PO WAS BEING PULLED DURING EVENT. THIS RN BACK IN ROOM AND PATIENT ASYMPTOMATIC ABLE TO ANSWER QUESTIONS AND BACK TO HR 120. PO METOPROLOL GIVEN. HOSPITALIST NOTIFIED AND REPORTS TO CONTINUE TO MONITOR. PATIENT OXYGEN 3L O2 NC WAS OFF ENTERING THE ROOM. WILL CONITINUE TO MONITOR. PATIENT SLEEPING.
--- NOTE | 2019-08-21 23:43 | NUR ---
TELEMETRY: V-TACH 170-180 FOR 2-3 MINUTES PER EL CLAY AND BACK TO 120'S. HOSPITALIST DR TRUONG NOTIFIED AND PUT IN ORDERS FOR IV LOPRESSOR 5 MG X ONE. CARDIAC MONITORING.
--- NOTE | 2019-08-22 00:22 | NUR ---
HOSPITALIST DR GUERRA REPORTS TO HOLD LOPRESSOR IV 5MG IF SBP <110 AND HR LESS THAN 130. BP IS 101/41 AND HR AFIB 120'S PER EDITOR MAP. LOPRESSOR HELD AT THIS TIME.
--- NOTE | 2019-08-22 01:32 | NUR ---
PATIENT TRANSFER TO PCU 10. REPORT GIVEN TO CEDRICK BETHEA.
[2019-08-22 01:44] LABS: BASOPHILS ABSOLUTE AUTO 0.02 K/mm3 (0.00-0.23); BASOPHILS PERCENT AUTO 0 % (0-2); EOSINOPHILS ABSOLUTE AUTO 0.02 K/mm3 (0.00-0.68); EOSINOPHILS PERCENT AUTO 0 % (0-6); Hematocrit 28.2 % (33.0-51.0); Hemoglobin 8.6 g/dL (11.5-16.0); IMMATURE GRAN ABSOLUTE AUTO 0.09 K/mm3 (0.00-0.10); IMMATURE GRAN PERCENT AUTO 1 % (0-1); LYMPHOCYTES PERCENT AUTO 9 % (21-46); MONOCYTES PERCENT AUTO 9 % (4-13); Mean Corpuscular HGB 27.6 pg (26.0-34.0); Mean Corpuscular HGB Conc 30.5 g/dL (31.5-36.5); Mean Corpuscular Volume 90 fL (80-100); Mean Platelet Volume 9.9 fL (9.1-12.4); NEUTROPHILS ABSOLUTE AUTO 13.19 K/mm3 (1.96-9.15); NEUTROPHILS PERCENT AUTO 81 % (41-73); NRBC Auto 1.2 /100 WBC (0.0-0.2); Platelet Count 311 K/mm3 (150-400); RDW Standard Deviation 48.4 fL (35.1-46.3); Red Blood Cell Count 3.12 M/mm3 (3.80-5.20); White Blood Cell Count 16.22 K/mm3 (4.00-11.30)
--- NOTE | 2019-08-22 02:00 | NUR ---
TRANSFER NOTE REPORT RECIEVED FROM KOLBY Bermudez RN AT THIS TIME. PATIENT TRANSFERED DOWN AT THIS TIME WELL. PATIENT SETTLED IN AND ORIENTED TO THE NEW ROOM, UNIT, AND CALL LIGHT. PATIENT SLEEPY BUT AWAKENS EASILY TO VERBAL STIMULI AND TO TOUCH. PATIENT ABLET O BRIEFLY ANSWER YES OR NO AND THEN FALLS BACK ASLEEP QUICKLY. PATIENT DOES NOT APPEAR TO BE IN DISTRESS AT THIS TIME. WILL CONTINUE TO MONITOR PATIENT.
[2019-08-22 02:04] LABS: Albumin, Blood 2.6 g/dL (3.4-5.0); Anion Gap 8 mmol/L (6-16); Blood Urea Nitrogen 27 mg/dL (8-24); Bun/Creatinine Ratio 27.6 (12.0-20.0); CO2, Blood 26 mmol/L (21-32); Calcium, Blood 9.3 mg/dL (8.5-10.1); Chloride, Blood 103 mmol/L (98-108); Creatinine, Blood 0.98 mg/dL (0.40-1.00); Glomerular Filtration Rate 58 (60-); Glucose, Blood 135 mg/dL (70-99); Magnesium, Blood 2.2 mg/dL (1.6-2.4); Phosphorus, Blood 2.2 mg/dL (2.5-4.9); Potassium, Blood 3.5 mmol/L (3.5-5.5); Sodium, Blood 137 mmol/L (136-145); Troponin I 0.064 ng/mL (0.000-0.040)
[2019-08-22 02:07] LABS: Albumin, Blood 2.6 g/dL (3.4-5.0); Albumin/Globulin Ratio 0.6 (0.8-1.8); Bun/Creatinine Ratio 29.4 (12.0-20.0); Calcium, Blood 9.6 mg/dL (8.5-10.1); Creatinine, Blood 0.95 mg/dL (0.40-1.00); Globulin, Blood 4.1 g/dL (2.2-4.0); Potassium, Blood 3.5 mmol/L (3.5-5.5); Total Protein, Blood 6.7 g/dL (6.4-8.2); Troponin I 0.062 ng/mL (0.000-0.040)
[2019-08-22 02:12] LABS: Thyroid Stimulating Hormone 0.782 uIU/mL (0.360-4.800)
--- NOTE | 2019-08-22 02:56 | NUR ---
UPDATE DR GUERRA NOTIFIED OF PATIENT'S LAB RESULTS. SHE WAS ALSO NOTIFIED THAT PATIENT CONTINUES TO HAVE RUNS OF VTACH THAT ARE SOMETIMES UP TO 2.5 MINUTES LONG PER PRODUCTION PLANNER SCHEDULER. PATIENT APPEARS TO BE SLIGHTLY MORE AWAKE DURING THESE EPISODES BUT PATIENT SAID "YES" WHEN ASKED IF SHE WAS FEELING OKAY DURING THESE EPISODES. DR GUERRA NOTIFIED WELL THAT PATIENT'S AFIB RATE IS CURRENTLY IN THE 120'S-130'S. DR GUERRA STATED SHE WOULD ENTER THE ORDERS SHE FELT WERE NEEDED. WILL CONTINUE TO MONITOR.
[2019-08-22 03:45] LABS: PCO2 Arterial 37.5 mmHg (35-45); PO2 Arterial 69.8 mmHg (80-100); pH Blood Arterial 7.46 (7.35-7.45)
--- NOTE | 2019-08-22 05:06 | NUR ---
UPDATE MEDICAL FLOOR NURSE KOLBY King STATED THAT HE WILL BE CALLING THE PATIENT'S SON TO NOTIFY FAMILY OF PATIENT'S TRANSFER TO PCU 10.
--- NOTE | 2019-08-22 06:10 | NUR ---
SON NOTIFIED OF ROOM CHANGE FROM MEDICAL 349 TO PCU 10.
--- NOTE | 2019-08-22 07:13 | NUR ---
SHIFT SUMMARY PATIENT CONTINUES TO SLEEPY THROUGHOUT THE NIGHT BUT IS EASILY AROUSIBLE. PATIENT TURNED Q2H. PATIENT APPEARS MORE AWAKE THIS MORNING, MOVING ARMS AND LEGS AROUND IN BED MORE THAN BEFORE. CLINIMIX RUNNING PER ORDERS. PATIENT HAS NOT HAD ANY REPORT RUNS OF VTACH FOR SEVERAL HOURS THIS MORNING. REPORT GIVEN TO ONCOMING RN.
--- NOTE | 2019-08-22 08:16 | NUR ---
pt laying in bed with eyes closed, responds to voice, but returns to sleep, is confused, but tries to follow some commands, lungs are clear, dim in bases, resp even and unlabored, no cough noted, is on 3 liters 02 via n/c, placed in her mouth as she is mouth breathing, hrirr, tele in place running afib per monitor, see strip, is running in the 120's, is npo at this time for speech eval but is so sleepy may not be able to eval today, iv sites are clear and patent, bt x4, abd flat soft nontender, voids via montiel, urine clear yellow urine, skin ok, maew, bedrest at this time, infusing clinimix at 50mls/hr, devaughn, call light in reach.
--- NOTE | 2019-08-22 11:38 | NUR ---
Echocardiogram completed.
--- NOTE | 2019-08-22 13:30 | NUR ---
pt remains unchanged, will continue npo until speech can clear her. cardiology and pallative care nurse in to speak with family about prognosis, hospice was recomended. family is on board. call light in reach. continue to turn q2 hr. call light in reach.
--- NOTE | 2019-08-22 13:58 | NUR ---
Patient and family hving review of prognosis with cardiology. He is reccomending hospice care as pt EF has declined. Patient aspirating and treatment modalities are not improving pt health or quality of life. Review of hospice with family they are in agreement. Review of hospice. Family is accepting. Pt lives at [facility] with will update care managers on pt needs. Updated hospitalist. pt meets criteria for hospice under [facility] guidelines pt is graded class IVD. pt KPS score is 20%.
--- NOTE | 2019-08-22 18:58 | NUR ---
pt unchanged this shift, she seems a bit more alert than earlier, no acute changes, heart rate is more controlled. call light in reach.
--- NOTE | 2019-08-23 02:15 | NUR ---
VTACH PATIENT CONVERTED TO AFIB EARLIER THIS SHIFT. PATIENT HAS HAD SEVERAL RUNS OF VTACH THAT HAVE BEEN LESS THAN 30 SECONDS LONG PER SILVER DESIGNER REPORT SINCE CONVERTING BACK TO AFIB. HEART RATE MEDICATIONS GIVEN PER ORDERS. WILL CONTINUE TO MONITOR.
--- NOTE | 2019-08-23 06:39 | NUR ---
SHIFT SUMMARY PATIENT CONTINUES TO BE DROWSY THROUGHOUT THE NIGHT BUT EASILY AROUSIBLE TO VERBAL STIMULI AND TOUCH. PATIENT ABLE TO RESPOND TO YES/NO QUESTIONS AND OCCATIONALLY RESPOND WITH VERY SHORT SENTENCES. PATIENT CONTINUES TO BE IN AFIB. PATIENT HAS HAD AN ADDITONAL RUN OF VTACH THAT WAS LESS THAN 30 SECONDS LONG PER [facility]. PATIENT APPEARED TO BECOME MORE AWAKE AND RESTLESS DURING THIS RUN OF VTACH. HOWEVER, PATIENT STATED "YES" WHEN ASKED IF SHE FELT OKAY. HEART RATE MEDICATIONS GIVEN PER EMAR. CLINIMIX AND IV ABX GIVEN PER EMAR. PATIENT TURNED Q2H. ORAL CARE PROVIDED. PATIENT APPEARS TO BE RESTING COMFORTABLY AT THIS TIME. WILL CONTINUE TO MONITOR PATIENT AND REPROT TO ON COMING RN.
[2019-08-23 08:00] LABS: BASOPHILS ABSOLUTE AUTO 0.02 K/mm3 (0.00-0.23); BASOPHILS PERCENT AUTO 0 % (0-2); EOSINOPHILS PERCENT AUTO 0 % (0-6); Hematocrit 29.1 % (33.0-51.0); Hemoglobin 8.7 g/dL (11.5-16.0); IMMATURE GRAN ABSOLUTE AUTO 0.13 K/mm3 (0.00-0.10); IMMATURE GRAN PERCENT AUTO 1 % (0-1); LYMPHOCYTES ABSOLUTE AUTO 2.38 K/mm3 (0.84-5.20); LYMPHOCYTES PERCENT AUTO 13 % (21-46); MONOCYTES ABSOLUTE AUTO 1.37 K/mm3 (0.16-1.47); MONOCYTES PERCENT AUTO 7 % (4-13); Mean Corpuscular HGB 26.9 pg (26.0-34.0); Mean Corpuscular HGB Conc 29.9 g/dL (31.5-36.5); Mean Corpuscular Volume 90 fL (80-100); NEUTROPHILS ABSOLUTE AUTO 14.66 K/mm3 (1.96-9.15); NEUTROPHILS PERCENT AUTO 79 % (41-73); NRBC ABSOLUTE 0.29 K/mm3 (0.00-0.02); NRBC Auto 1.6 /100 WBC (0.0-0.2); Platelet Count 302 K/mm3 (150-400); RDW Coefficient Variation 15.4 % (11.7-14.2); RDW Standard Deviation 49.4 fL (35.1-46.3); Red Blood Cell Count 3.23 M/mm3 (3.80-5.20); White Blood Cell Count 18.56 K/mm3 (4.00-11.30)
[2019-08-23 08:07] LABS: HBSAG SCREEN Negative (Negative); HEP A AB, IGM Negative (Negative); HEP B CORE AB, IGM Negative (Negative); HEP C VIRUS AB <0.1 (0.0-0.9)
[2019-08-23 08:17] LABS: Alanine Aminotransfer (ALT/SGP 631 U/L (12-78); Albumin, Blood 2.4 g/dL (3.4-5.0); Albumin/Globulin Ratio 0.6 (0.8-1.8); Alk Phos 140 U/L (50-136); Anion Gap 8 mmol/L (6-16); Aspartate Aminotrans (AST/SGOT 668 U/L (12-37); Bilirubin, Total 1.1 mg/dL (0.1-1.0); Blood Urea Nitrogen 41 mg/dL (8-24); Bun/Creatinine Ratio 44.7 (12.0-20.0); CO2, Blood 26 mmol/L (21-32); Calcium, Blood 9.6 mg/dL (8.5-10.1); Chloride, Blood 103 mmol/L (98-108); Creatinine, Blood 0.92 mg/dL (0.40-1.00); Globulin, Blood 4.1 g/dL (2.2-4.0); Glomerular Filtration Rate >60 (60-); Glucose, Blood 132 mg/dL (70-99); Magnesium, Blood 2.2 mg/dL (1.6-2.4); Phosphorus, Blood 2.6 mg/dL (2.5-4.9); Potassium, Blood 3.8 mmol/L (3.5-5.5); Sodium, Blood 137 mmol/L (136-145); Total Protein, Blood 6.5 g/dL (6.4-8.2)
--- NOTE | 2019-08-23 18:03 | NUR ---
[facility] note: No family present at time of visit. Mrs. Bradley opened her eyes to touch, but did not respond and went back into a peaceful sleep. Prayer provided at bedside. I will remain available to pt and family.
--- NOTE | 2019-08-23 18:41 | NUR ---
PT HAS AWOKE A FEW TIMES TODAY WITH SLOW SLIGHTLY GARBLED SPEECH, HAS NOT INTERACTED WITH STAFF MUCH TODAY. THIS AFTERNOON IT WAS NOTED THAT PT HAD DRIED DENTURE CREAM TO THE ROOF OF MOUTH, BACK OF THROAT AND UPPER GUMS THAT WAS REMOVED SUCCESSFULLY WITH ASSITANCE OF RT. PER FAMILY PT HAS BEEN USING UPWARDS OF 2 TUBES OF DENTURE CREAM EACH WEEK, FAMILY STATED THAT EARLIER THEY HAD TO FORCEFULLY REMOVE PT'S UPPER DENTURE PLATE, PLACE HAD BEEN REMOVED PRIOR TO THIS RN ASSUMING CARE, THERE IS NO TRAUMA NOTED TO UPPER PALATE FROM STATED REMOVAL OF DENTURES. PT HAS NOT HAD ANY GROSS CHANGES T/O THIS SHIFT, PT HAS REMAINED SLEEPY, AWAKES TO VERBAL STIMULI. PT WAS PLACED ON COMFORT CARE ORDERS ARE THE END OF THE SHIFT. TRANSPORT WILL ARRIVE TOMORROW AROUND 1000 FOR TRANSPORT BACK TO [place], D/C PAPERS WILL NEED TO BE FAXED TO [place]
--- NOTE | 2019-08-24 06:25 | NUR ---
END OF SHIFT SUMMARY NO ACUTE CHANGES THIS SHIFT. PT IS ON COMFORT CARE. PT BEING TURNED BY STAFF, CONTINENCE CHECKS IN PLACE. IV WITH KVO TO MAINTAIN PATENCY. LANDRY IN PLACE, PATENT, CLEANED. PT ON 2LNC FOR COMFORT, SPO2 >95%. PT HAD ONE INSTANCE OF SECRETIONS, ATROPINE EYE DROPS ADMINISTERED, THIS RESOLVED. PT HAD SOME ANXIETY, 0.5MG IV ATIVAN GIVEN, SINCE THEN PT HAS SLEPT COMFORTABLY. FAMILY MEMBER HAS BEEN AT BEDSIDE ALL NIGHT. PT HAS BEEN ABLE TO COMMUNICATE NEEDS WITH THIS RN. WILL CONTINUE TO MONITOR UNTIL SHIFT CHANGE.
--- NOTE | 2019-08-24 07:44 | NUR ---
AM ASSESSMENT- PT LYING IN BED ASLEEP, PT DOES NOT AWAKE TO VERBAL OR TOUCH. LS CLEAR, ON 2L N/C VIA MOUTH. ABD SOFT NON DISTENDED. LANDRY PATENT AND DRAINING YELLOW URINE. IV X2 IN PLACE. PT WARM TO TOUCH, BLANKETS PULLED BACK SLIGHTLY. PT APPEARS TO BE RESTING COMFORTABLY AT THIS TIME. DNR WRISTBAND TO LEFT WRIST. PT COMFORT CARE STATUS.
[2019-08-24] MEDS ORDERED: ATROPINE SULFATE2 ML SL (09:51)
[2019-08-24] MEDS ORDERED: Ativan1 MG PO (09:51)
[2019-08-24] MEDS ORDERED: MORP20L SL (09:52)
--- NOTE | 2019-08-24 10:12 | NUR ---
PT DAUGHTER IN LAW CHRISTINA CALLED AT 0915 AND REPORTED EQUIPMENT HAD NOT DELIVERED LAST EVENING IT WAS SUPPOSED TO. SPOKE WITH [facility]ALTH [facility]IT COORDINATOR WHO CALLED [facility] AND CONFIRMED THAT THE EQUIPMENT HAD BEEN DELIVERED AND SHE WOULD CALL CHRISTINA BACK AND NOTIFY HER. [facility] NOTIFIED OF PT DISCHARGE TODAY AT 1000 ON HOSPICE. PT DC'D BACK TO [facility] VIA [facility]MEND[facility] AT 1009. IVX2 DC'D PRIOR TO DISCHARGE. LANDRY KEPT IN PLACE FOR COMFORT. PT APPEARS COMFORTABLE AT TIMES OF DISCHARGE.
== END 2019-08-24 10:12 | disposition home or self-care (01) | DRG 177 ==
LOC: ER 13:27 → PCU 17:22 → MEDS 17:22 → PCU 08-22 01:24
PROVIDERS: Emergency Medicine; Family Medicine; ADMIT Internal Medicine
DX: J69.0 Pneumonitis due to inhalation of food and vomit (principal); J96.01 Acute respiratory failure with hypoxia; G92 Toxic encephalopathy; I13.0 Hypertensive heart and chronic kidney disease with heart failure and stage 1 through stage 4 chronic kidney disease, or unspecified chronic kidney disease; E87.1 Hypo-osmolality and hyponatremia; I47.2 Ventricular tachycardia; I42.0 Dilated cardiomyopathy; Z51.5 Encounter for palliative care; E83.39 Other disorders of phosphorus metabolism; I25.10 Atherosclerotic heart disease of native coronary artery without angina pectoris; E78.5 Hyperlipidemia, unspecified; K21.9 Gastro-esophageal reflux disease without esophagitis; M81.0 Age-related osteoporosis without current pathological fracture; G30.9 Alzheimer's disease, unspecified; Z95.1 Presence of aortocoronary bypass graft; Z87.891 Personal history of nicotine dependence; Z96.642 Presence of left artificial hip joint; F02.80 Dementia in other diseases classified elsewhere, unspecified severity, without behavioral disturbance, psychotic disturbance, mood disturbance, and anxiety; Z79.82 Long term (current) use of aspirin; Z79.02 Long term (current) use of antithrombotics/antiplatelets; I73.9 Peripheral vascular disease, unspecified; E86.0 Dehydration; K76.1 Chronic passive congestion of liver; N18.2 Chronic kidney disease, stage 2 (mild); I48.0 Paroxysmal atrial fibrillation
CPT/HCPCS: 36415; 36600; 71046; 74177; 76705; 80053; 80069; 80074; 81001; 82272; 82607; 82728; 82746; 82803; 82947; 82977; 83010; 83540; 83550; 83690; 83735; 83880; 84100; 84443; 84484; 85025; 86850; 86900; 86901; 87086; 92610; 93005; 93010; 94640; 94760; 96365-59; 99285-25; C8929; J0456; J0696; J0697; J1650; J1940; J2060; J2543; J7030; J7050; J7060; Q9957; Q9967